=== PATIENT | female | born 1975 | race Caucasian/White ===

== ENCOUNTER 2018-01-15 12:55 | Emergency (ER) | payer BC ==
--- NOTE | 2018-01-15 13:45 | EDM.PDOC ---
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 Past medical history: As per history of present illness and as reviewed below otherwise noncontributory. Surgical history: As per history of present illness and as reviewed below otherwise noncontributory. Social history: No reported history of drug or alcohol abuse. Family history: As per history of present illness and as reviewed below otherwise noncontributory. Physical exam: Alert and oriented female answering questions appropriately in full sentences without any shortness of breath she is nontoxic in appearance skin is warm and dry. Vital signs are reviewed and she is afebrile. HEENT: Atraumatic, normocehpalic, pupils reactive, negative for conjunctival pallor or scleral icterus, mucous membranes moist, throat clear, neck supple, nontender, trachea midline. Lungs: Clear to auscultation, breath sounds equal bilaterally, chest non tender. Heart: S1S2, regular, negative for clicks, rubs, or JVD. Abdomen: Soft, nondistended, nontender. Negative for masses or hepatossplenmegaly. Negative for costovertebral tenderness. Pelvis: Stable nontender. Genitourinary: Deferred. Rectal: Deferred Extremities: Mild edema noted to the subpatellar area on left knee is visit tenderness unable to complete anterior drawer as patient is not able to relax enough, negative for cord. Tenderness is noted with compression of her calf. Neurovascular unremarkable. Neuro: Awake, alert, oriented. Cranial nerves II through XII unremarkable. Cerebellum unremarkable. Motor and sensory unremarkable throughout. Exam nonfocal. Discussed this case with Dr. Vegas who is suggested. Ankle x-ray be obtained as well. No ankle fracture Diagnostics: []X-ray left knee CT left knee/ Therapeutics: [] Impression: [Proximal head fibula fracture Plan: []Knee immobilizer Crutches Hydrocodone/APAP Flexeril Referral to orthopedic clinic Definitive disposition and diagnosis as appropriate pending reevaluation and review of above. 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: Neurological History: Reports: Migraines Psychiatric History: Reports: Anxiety - Past Surgical History Other HEENT Surgeries/Procedures: hx Right and left middle ear surgery Female Surgical History: Reports: Tubal Ligation Social & Family History - Family History Family Medical History: Noncontributory - Tobacco Use Smoking Status *Q: Current Every Day Smoker Years of Tobacco use: 28 Packs/Tins Daily: 0.5 - Caffeine Use Caffeine Use: Reports: Coffee - Recreational Drug Use Recreational Drug Use: No Review of Systems - Review of Systems Review Of Systems: ROS reveals no pertinent complaints other than HPI. ED EXAM, GENERAL - Physical Exam Exam: See Below (see dictation) Course - Vital Signs Last Recorded V/S: Last Vital Signs Temp 37.4 C 01/15/18 13:28 Pulse 87 01/15/18 13:28 Resp 20 01/15/18 13:28 BP 128/85 01/15/18 13:28 Pulse Ox 98 01/15/18 13:28 - Orders/Labs/Meds Orders: Active Orders 24 hr Category Date Time Status Ankle Min 3V Lt [CR] Stat Exams 01/15/18 16:17 Taken Knee 3V Lt [CR] Stat Exams 01/15/18 13:45 Taken Lower Leg w Cont Lt [CT] Stat Exams 01/15/18 14:34 Taken Meds: Medications Discontinued Medications Generic Name Dose Route Start Last Admin Trade Name Freq PRN Reason Stop Dose Admin Diazepam 2.5 mg 01/15/18 14:39 01/15/18 14:51 Valium IV 01/15/18 14:40 2.5 mg ONETIME ONE Administration Iopamidol 100 ml 01/15/18 15:21 01/15/18 15:22 Isovue-370 (76%) IVPUSH 01/15/18 15:22 100 ml ONETIME STA Administration Morphine Sulfate 4 mg 01/15/18 14:38 01/15/18 14:50 Morphine IVPUSH 01/15/18 14:39 4 mg ONETIME ONE Administration Ondansetron HCl 4 mg 01/15/18 14:38 01/15/18 14:50 Zofran IVPUSH 01/15/18 14:39 4 mg ONETIME ONE Administration Departure - Departure Time of Disposition: 16:49 Disposition: Home, Self-Care 01 Condition: Good Clinical Impression: Fracture of fibula - Discharge Information Instructions: Fibular Fracture Rehab-SportsMed, How to Use a Knee Immobilizer, [id number] Referrals: Paul Ulloa MD [Primary Care Provider] - Shavon Nation MD [Physician] - Forms: ED Department Discharge Additional Instructions: The following information is given to patients seen in the emergency department who are being discharged to home. This information is to outline your options for follow-up care. We provide all patients seen in our emergency department with a follow-up referral. The need for follow-up, as well as the timing and circumstances, are variable depending upon the specifics of your emergency department visit. If you don't have a primary care physician on staff, we will provide you with a referral. We always advise you to contact your personal physician following an emergency department visit to inform them of the circumstance of the visit and for follow-up with them and/or the need for any referrals to a consulting specialist. The emergency department will also refer you to a specialist when appropriate. This referral assures that you have the opportunity for followup care with a specialist. All of these measure are taken in an effort to provide you with optimal care, which includes your followup. Under all circumstances we always encourage you to contact your private physician who remains a resource for coordinating your care. When calling for followup care, please make the office aware that this follow-up is from your recent emergency room visit. If for any reason you are refused follow-up, please contact the [facility] emergency department at and asked to speak to the emergency department charge nurse. fracture of the proximal head of the fibula No other fractures are noted Immobilizer will be in place Crutches for no weightbearing Return to the emergency department as directed For her to the orthopedics clinic - My Orders Last 24 Hours: My Active Orders 01/15/18 13:45 Knee 3V Lt [CR] Stat 01/15/18 14:34 Lower Leg w Cont Lt [CT] Stat 01/15/18 16:17 Ankle Min 3V Lt [CR] Stat - Assessment/Plan Last 24 Hours: My Active Orders 01/15/18 13:45 Knee 3V Lt [CR] Stat 01/15/18 14:34 Lower Leg w Cont Lt [CT] Stat 01/15/18 16:17 Ankle Min 3V Lt [CR] Stat
[2018-01-15] MEDS ORDERED: Ondansetron 4 MG/2 ML SDV IVPUSH ONE (14:38)
[2018-01-15] MEDS ORDERED: Morphine 4 MG/ML Syringe IVPUSH ONE (14:38)
[2018-01-15] MEDS ORDERED: Iopamidol 755 Mg/ML 100 ML Bottle IVPUSH STA (15:21)
[2018-01-15 17:38] VITALS: BP 130/70
--- NOTE | 2018-01-16 14:33 | CR ---
EXAM DATE: 01/15/18 PATIENT'S AGE: 42 Patient: HONG VARNER MFOMO Facility: [place], [place] Site . Site : 1975 Study: XRay Knee Left [id number]/28/2018 2:24:34 PM Ordering Physician: Doctor Rosas Final Report: INDICATION: Left knee pain. TECHNIQUE: Three views of the left knee. COMPARISON: None. FINDINGS: No joint effusion, joint space narrowing, chondrocalcinosis or other abnormality. IMPRESSION: Negative left knee. Dictated by Tom De La Vega MD @ Jan 15 2018 2:34PM (Electronic Signature) Report Signed by Proxy. JONO
--- NOTE | 2018-01-16 14:45 | CT ---
EXAM DATE: 01/15/18 PATIENT'S AGE: 42 Patient: HONG VARNER MFOMO Facility: [place], [place] Site . Site : 1975 Study: CT Extremity Left lower leg w cont [id number]/28/2018 3:30:13 PM Ordering Physician: Doctor Rosas Final Report: HISTORY: Severe left calf pain. Fall. Assess for vascular injury. TECHNIQUE: CT left tibia and fibula with IV contrast. COMPARISON: None. FINDINGS: Popliteal, anterior tibial, posterior tibial, and peroneal arteries are patent. No active contrast extravasation. No pseudoaneurysm. Low density fat stranding between the medial gastrocnemius and soleus muscles. No fluid collection. No significant popliteal cyst. No muscle atrophy. Nondisplaced acute fracture of the head of the left fibula. Fracture involves the proximal tibiofibular joint. Trace right knee joint effusion. Knee joint spaces appear maintained. Ankle joint is maintained. Joint spaces of the visualized hindfoot and midfoot are maintained. No lytic or blastic bone lesions. IMPRESSION: 1. No evidence of vascular injury. 2. Acute nondisplaced fracture of the head of the fibula. 3. Fat stranding between the medial gastrocnemius and soleus muscles may be due to musculotendinous injury. This could be better evaluated with MRI if warranted. Please note that all CT scans at this facility use dose modulation, iterative reconstruction, and/or weight-based dosing when appropriate to reduce radiation dose to as low as reasonably achievable. Dictated by Lyndon Yates MD @ Jan 16 2018 7:56AM (Electronic Signature) Report Signed by Proxy. MTDD
--- NOTE | 2018-01-16 15:07 | CR ---
EXAM DATE: 01/15/18 PATIENT'S AGE: 42 Patient: HONG VARNER MFOMO Facility: [place], [place] Site . Site : 1975 Study: XRay Extremity Left ankle [id number]/28/2018 4:31:48 PM Ordering Physician: Doctor Rosas Final Report: INDICATION: Patient fell. Ankle injury. COMPARISON: none TECHNIQUE: Three-view left ankle FINDINGS: The bones are anatomically aligned. There is no evidence of fracture, erosion or intrinsic bone lesion. The soft tissues appear normal. IMPRESSION: Negative left ankle. Dictated by Brant Tyler MD @ Jan 15 2018 4:39PM (Electronic Signature) Report Signed by Proxy. JONO
== END 2018-01-15 17:34 | disposition home or self-care (01) ==
LOC: MW.ED 12:55
DX: S82.832A Other fracture of upper and lower end of left fibula, initial encounter for closed fracture (principal); F17.210 Nicotine dependence, cigarettes, uncomplicated; Z79.899 Other long term (current) drug therapy; X50.9XXA Other and unspecified overexertion or strenuous movements or postures, initial encounter
CPT/HCPCS: 73562; 73610; 73701; 96374; 96375; 99283; A9270; J2270; J2405; Q9967

== ENCOUNTER 2018-02-02 23:38 | Emergency (ER) | payer BC ==
--- NOTE | 2018-02-02 23:54 | EDM.PDOC ---
ED HPI GENERAL MEDICAL PROBLEM - General Chief Complaint: Lower Extremity Injury/Pain Stated Complaint: BRUISES ON FACE, PAIN IN CALVES Time Seen by Provider: 02/02/18 23:54 Source of Information: Reports: Patient - History of Present Illness INITIAL COMMENTS - FREE TEXT/NARRATIVE: HISTORY AND PHYSICAL: History of present illness: [Patient presents with left lower extremity discomfort and bruising, she has known for moral head fracture she has not been wearing her brace she is on rummage sailing today bruising insulate consistent with old bruises but she does have some pain redness warmth or edema faint bruising going up the back of her calf consistent with the fracture history She complains of bruising on her face as well however unable to wipe this off as it appears her mascara has ran down her face that she was out in the heat today rummage sailing and sweating. No fever nausea vomiting chills sweats] Review of systems: As per history of present illness and below otherwise all systems reviewed and negative. Past medical history: As per history of present illness and as reviewed below otherwise noncontributory. Surgical history: As per history of present illness and as reviewed below otherwise noncontributory. Social history: No reported history of drug or alcohol abuse. Family history: As per history of present illness and as reviewed below otherwise noncontributory. Physical exam: HEENT: Atraumatic, normocephalic, pupils reactive, negative for conjunctival pallor or scleral icterus, mucous membranes moist, throat clear, neck supple, nontender, trachea midline. Lungs: Clear to auscultation, breath sounds equal bilaterally, chest nontender. Heart: S1S2, regular, negative for clicks, rubs, or JVD. Abdomen: Soft, nondistended, nontender. Negative for masses or hepatosplenomegaly. Negative for costovertebral tenderness. Pelvis: Stable nontender. Genitourinary: Deferred. Rectal: Deferred. Extremities: Atraumatic, negative for cords or calf pain. Neurovascular unremarkable. Neuro: Awake, alert, oriented. Cranial nerves II through XII unremarkable. Cerebellum unremarkable. Motor and sensory unremarkable throughout. Exam nonfocal. Diagnostics: [A shunt was offered ultrasound to rule out DVT she refused Recommend wearing brace and using crutches nonweightbearing] Therapeutics: [] Impression: [Fibular head fracture January 15, 2018 Knee immobilizer already provided] Definitive disposition and diagnosis as appropriate pending reevaluation and review of above. 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: Neurological History: Reports: Migraines Psychiatric History: Reports: Anxiety - Past Surgical History Other HEENT Surgeries/Procedures: hx Right and left middle ear surgery Female Surgical History: Reports: Tubal Ligation Social & Family History - Family History Family Medical History: Noncontributory - Tobacco Use Smoking Status *Q: Current Every Day Smoker Years of Tobacco use: 20 Packs/Tins Daily: 0.5 - Caffeine Use Caffeine Use: Reports: Coffee Review of Systems - Review of Systems Review Of Systems: See Below ED EXAM, GENERAL - Physical Exam Exam: See Below Course - Vital Signs Last Recorded V/S: Last Vital Signs Temp 97.1 F 02/02/18 23:55 Pulse 114 H 02/02/18 23:55 Resp 18 02/02/18 23:55 BP 137/81 02/02/18 23:55 Pulse Ox 100 02/02/18 23:55 Departure - Departure Time of Disposition: 00:10 Disposition: Home, Self-Care 01 Condition: Good Clinical Impression: Fibula fracture - Discharge Information Referrals: Paul Ulloa MD [Primary Care Provider] - Forms: ED Department Discharge Additional Instructions: The following information is given to patients seen in the emergency department who are being discharged to home. This information is to outline your options for follow-up care. We provide all patients seen in our emergency department with a follow-up referral. The need for follow-up, as well as the timing and circumstances, are variable depending upon the specifics of your emergency department visit. If you don't have a primary care physician on staff, we will provide you with a referral. We always advise you to contact your personal physician following an emergency department visit to inform them of the circumstance of the visit and for follow-up with them and/or the need for any referrals to a consulting specialist. The emergency department will also refer you to a specialist when appropriate. This referral assures that you have the opportunity for follow-up care with a specialist. All of these measure are taken in an effort to provide you with optimal care, which includes your follow-up. Under all circumstances we always encourage you to contact your private physician who remains a resource for coordinating your care. When calling for follow-up care, please make the office aware that this follow-up is from your recent emergency room visit. If for any reason you are refused follow-up, please contact the [facility] emergency department at and asked to speak to the emergency department charge nurse.
[2018-02-02 23:56] VITALS: BP 137/81
== END 2018-02-03 00:15 | disposition home or self-care (01) ==
LOC: MW.ED 23:38
DX: S82.402D Unspecified fracture of shaft of left fibula, subsequent encounter for closed fracture with routine healing (principal); F17.210 Nicotine dependence, cigarettes, uncomplicated; Z79.899 Other long term (current) drug therapy; X58.XXXD Exposure to other specified factors, subsequent encounter
CPT/HCPCS: 99283

== ENCOUNTER 2020-04-20 06:32 | Day surgery (SDC) | payer BC ==
[~2020-04-20 06:32] MED LIST: Lactated Ringers 1,000 ML IV SCH; Sodium Chloride 0.9% 10 ML SDV IV PRN; Sodium Chloride 0.9% 10 ML Syringe FLUSH PRN; Sodium Chloride 0.9% 2.5 ML Syringe FLUSH PRN; ceFAZolin 1 GM Vial IM ONE
[2020-04-20] MEDS ORDERED: Ondansetron 4 MG/2 ML SDV ONE (07:13)
[2020-04-20] MEDS ORDERED: Lidocaine 2% 5 ML SDV ONE (07:13)
[2020-04-20] MEDS ORDERED: Propofol 200 MG/20 ML SDV ONE (07:13)
[2020-04-20] MEDS ORDERED: Midazolam 1 MG/ML 2 ML SDV ONE (07:14)
[2020-04-20] MEDS ORDERED: fentaNYL 250 MCG/5 ML SDV ONE (07:14)
--- NOTE | 2020-04-20 07:48 | PCM.PREANE ---
Preanesthetic Assessment - Anesthesia/Transfusion/Family Hx Anesthesia History: Prior Anesthesia Without Reaction Family History of Anesthesia Reaction: No Transfusion History: No Prior Transfusion(s) - Review of Systems General: No Symptoms Pulmonary: No Symptoms Cardiovascular: No Symptoms Gastrointestinal: No Symptoms Neurological: No Symptoms Other: Reports: None - Physical Assessment NPO Status Date: 04/19/20 Vital Signs: Last Vital Signs Temp 97.3 F 04/20/20 06:53 Pulse 73 04/20/20 06:53 Resp 16 04/20/20 06:53 BP 123/72 04/20/20 06:53 Pulse Ox 98 04/20/20 06:53 Height: 5 ft 6 in Weight: 68.492 kg ASA Class: 2 Mental Status: Alert & Oriented x3 Airway Class: Mallampati = 1 Dentition: Reports: Normal Dentition ROM/Head Extension: Full Lungs: Clear to Auscultation, Normal Respiratory Effort Cardiovascular: Regular Rate, Regular Rhythm - Lab Values: Laboratory Last Values WBC 4.42 K/uL (4.0-11.0) 04/17/20 08:33 RBC 4.30 M/uL (4.30-5.90) 04/17/20 08:33 Hgb 11.1 g/dL (12.0-16.0) L 04/17/20 08:33 Hct 36.9 % (36.0-46.0) 04/17/20 08:33 MCV 85.8 fL (80.0-98.0) 04/17/20 08:33 MCH 25.8 pg (27.0-32.0) L 04/17/20 08:33 MCHC 30.1 g/dL (31.0-37.0) L 04/17/20 08:33 RDW Std Deviation 52.8 fl (28.0-62.0) 04/17/20 08:33 RDW Coeff of Crys 17 % (11.0-15.0) H 04/17/20 08:33 Plt Count 305 K/uL (150-400) 04/17/20 08:33 MPV 9.40 fL (7.40-12.00) 04/17/20 08:33 Nucleated RBC % 0.0 /100WBC 04/17/20 08:33 Nucleated RBCs # 0 K/uL 08/28/20 08:33 HCG, Qual NEGATIVE (NEG) 04/17/20 08:33 - Allergies Allergies/Adverse Reactions: Allergies Allergy/AdvReac Type Severity Reaction Status Date / Time No Known Allergies Allergy Verified 04/14/20 12:46 - Blood Blood Available: No - Anesthesia Plan Pre-Op Medication Ordered: None - Acknowledgements Anesthesia Type Planned: General Anesthesia Pt an Appropriate Candidate for the Planned Anesthesia: Yes Alternatives and Risks of Anesthesia Discussed w Pt/Guardian: Yes Pt/Guardian Understands and Agrees with Anesthesia Plan: Yes PreAnesthesia Questionnaire HEENT History: Reports: Other (See Below) Other HEENT History: hx of Otosclerosis, wears glasses Cardiovascular History: Reports: Other (See Below) Other Cardiovascular History: hx of mild HTN Gastrointestinal History: Reports: Hemorrhoids, Other (See Below) Other Gastrointestinal History: heartburn in the past Genitourinary History: Reports: Renal Calculus 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: Musculoskeletal History: Reports: Fracture Other Musculoskeletal History: hx of fx clavicle, right wrist, fibula and vertebrate L3 and S4-5 Neurological History: Reports: Concussion, Migraines Psychiatric History: Reports: Anxiety Hematologic History: Reports: Iron Deficiency - Past Surgical History Head Surgeries/Procedures: Reports: None HEENT Surgical History: Reports: Other (See Below) Other HEENT Surgeries/Procedures: replacement of "rods" in both ears- has titanium parts Female Surgical History: Reports: Tubal Ligation, Other (See Below) Other Female Surgeries/Procedures: had BTL and reversal, "clamps" put on tubes and then bilateral Salpingectomy - SUBSTANCE USE Smoking Status *Q: Current Every Day Smoker Tobacco Use Within Last Twelve Months: Cigarettes Days Per Week of Alcohol Use: 1 Recreational Drug Use History: No - HOME MEDS Home Medications: Home Meds Topiramate [Topamax] 125 mg PO BEDTIME 06/22/15 [History] ALPRAZolam [Xanax] 1 mg PO ASDIRECTED PRN 04/14/20 [History] - CURRENT (IN HOUSE) MEDS Current Meds: Current Medications Lactated Ringer's (Ringers, Lactated) 1,000 mls @ 100 mls/hr IV ASDIRECTED LARRY Last Admin: 04/20/20 06:55 Dose: 100 mls/hr Documented by: Sodium Chloride (Saline Flush) 10 ml FLUSH ASDIRECTED PRN PRN Reason: Keep Vein Open Sodium Chloride (Saline Flush) 2.5 ml FLUSH ASDIRECTED PRN PRN Reason: Keep Vein Open Sodium Chloride (Normal Saline) 10 ml IV ASDIRECTED PRN PRN Reason: IV Use Discontinued Medications Cefazolin Sodium (Ancef) 1 gm IM ONETIME ONE Stop: 04/20/20 05:01 Fentanyl (Sublimaze) Confirm Administered Dose 250 mcg .ROUTE .STK-MED ONE Stop: 04/20/20 07:15 Lidocaine (Xylocaine-Mpf 2%) Confirm Administered Dose 5 ml .ROUTE .STK-MED ONE Stop: 04/20/20 07:14 Midazolam HCl (Versed 1 Mg/Ml) Confirm Administered Dose 2 mg .ROUTE .STK-MED ONE Stop: 04/20/20 07:15 Ondansetron HCl (Zofran) Confirm Administered Dose 4 mg .ROUTE .STK-MED ONE Stop: 04/20/20 07:14 Propofol (Diprivan 20 Ml) Confirm Administered Dose 200 mg .ROUTE .STK-MED ONE Stop: 04/20/20 07:14
[2020-04-20] MEDS ORDERED: Sodium Chloride 0.9% 20 ML ONE (08:13)
[2020-04-20] MEDS ORDERED: ceFAZolin 1 GM Vial ONE (08:13)
--- NOTE | 2020-04-20 08:37 | PCM.OPNOTE ---
- General Post-Op/Procedure Note Date of Surgery/Procedure: 04/20/20 Operative Procedure(s): Operative hysteroscopy with polypectomy. Thermal endometrial ablation Findings: Endocervical polyp, otherwise normal appearing uterine cavity Pre Op Diagnosis: Menometrorrhagia Post-Op Diagnosis: Same Anesthesia Technique: General LMA Primary Surgeon: Myriam Castillo Pathology: polyp with endometrial curretings Fluid Replacement, Intraop: 700 (Fluid deficit 120 mL NS) EBL in mLs: 5 Complications: none known Condition: Good Free Text/Narrative:: Dictation [id number]
[2020-04-20] MEDS ORDERED: Atropine 0.1 MG/ML 10 ML Syringe IVPUSH PRN ×2 (08:48)
[2020-04-20] MEDS ORDERED: Naloxone 0.4 MG/ML Syringe IVPUSH PRN (08:48)
[2020-04-20] MEDS ORDERED: 50% Dextrose in Water 50 ML Syringe IVPUSH PRN (08:48)
[2020-04-20] MEDS ORDERED: Ketorolac 30 MG/ML SDV IVPUSH ONE (08:48)
[2020-04-20] MEDS ORDERED: Albuterol 0.083% 2.5 MG/3 ML Neb Soln NEB PRN (08:48)
[2020-04-20] MEDS ORDERED: EPINEPHrine 1:10,000 1 MG/10 ML Syringe IVPUSH PRN (08:48)
[2020-04-20] MEDS ORDERED: fentaNYL 100 MCG/2 ML SDV ONE (08:50)
[2020-04-20] MEDS ORDERED: Ketorolac 30 MG/ML SDV ONE (08:51)
[2020-04-20] MEDS: fentaNYL 100 MCG/2 ML SDV IVPUSH PRN ×2 (08:52→08:57)
[2020-04-20] MEDS ORDERED: HYDROmorphone 1 MG/ML Syringe IVPUSH ONE (09:21)
[2020-04-20] MEDS ORDERED: Acetaminophen 1,000 MG in Premix Bag 1 BAG IV ONE (09:21)
[2020-04-20] MEDS ORDERED: HYDROmorphone 2 MG/ML Syringe ONE (09:26)
--- NOTE | 2020-04-20 10:36 | PCM.POSTAN ---
POST ANESTHESIA ASSESSMENT - MENTAL STATUS Mental Status: Alert, Oriented - VITAL SIGNS Vital Signs: Last Vital Signs Temp 97.2 F 04/20/20 08:27 Pulse 57 L 04/20/20 09:02 Resp 10 L 04/20/20 09:02 BP 122/74 04/20/20 09:02 Pulse Ox 97 04/20/20 09:02 - RESPIRATORY Respiratory Status: Respiratory Rate WNL, Airway Patent, O2 Saturation Stable - CARDIOVASCULAR CV Status: Pulse Rate WNL, Blood Pressure Stable - GASTROINTESTINAL GI Status: No Symptoms - POST OP HYDRATION Hydration Status: Adequate & Stable
--- NOTE | 2020-04-20 10:37 | PCM48HPAN ---
Post Anesthesia Note - EVALUATION WITHIN 48HRS OF ANESTHETIC Vital Signs in Normal Range: Yes Patient Participated in Evaluation: Yes Respiratory Function Stable: Yes Airway Patent: Yes Cardiovascular Function Stable: Yes Hydration Status Stable: Yes Pain Control Satisfactory: Yes Nausea and Vomiting Control Satisfactory: Yes Mental Status Recovered: Yes Vital Signs: Last Vital Signs Temp 97.2 F 04/20/20 08:27 Pulse 57 L 04/20/20 09:02 Resp 10 L 04/20/20 09:02 BP 122/74 04/20/20 09:02 Pulse Ox 97 04/20/20 09:02
[2020-04-20 12:09] VITALS: BP 118/72; PULSE 72
--- NOTE | 2020-04-20 12:50 | OR ---
SURGEON: Myriam Castillo M.D. DATE OF PROCEDURE: 04/20/2020 PREOPERATIVE DIAGNOSIS: Menometrorrhagia. POSTOPERATIVE DIAGNOSIS: Menometrorrhagia. PROCEDURES: Operative hysteroscopy with polypectomy, thermal endometrial ablation. PRIMARY SURGEON: Myriam Castillo MD ANESTHESIA: General LMA. ESTIMATED BLOOD LOSS: 5 mL. FLUIDS: 700 mL of crystalloid. FLUID DEFICIT: 120 mL of normal saline. FINDINGS: Endocervical polyp, otherwise normal-appearing uterine cavity. DISPOSITION: The patient to PACU, stable; specimen to pathology. PROCEDURE DETAILS: Quynh is a 45-year-old female who has ongoing difficulties with menometrorrhagia. Endometrial biopsy is benign at this time, and she has permanent control. At this time, she would like to proceed with surgical intervention in the form of thermal endometrial ablation. Risks of procedure have been discussed. Proper consent obtained. The patient was taken to the operating room where she underwent general LMA, was placed in modified dorsal lithotomy position, was prepped and draped in usual sterile fashion. SCDs to lower extremity. Bladder was drained. Time-out was performed. She also received Ancef prophylactically given recent suspected pelvic infection. Speculum was introduced in the vagina. Posterior lip of the cervix was grasped with an Allis clamp. Using MyoSure hysteroscope, was able to gently introduce this into the endometrial cavity using normal saline as distention media. Endometrial cavity had normal appearance. Left ostia and right ostia able to be visualized. No polyps were seen along the fundus or mid fundus. However, upon exiting, there was an endocervical polyp noted. Using MyoSure resection device, was able to resect this nicely. Specimen will be sent to pathology. Caitlin device was now prepped according to magnesium mill operator protocol. The antral os was sounded to 4 cm. The Caitlin device was now introduced into the uterine cavity. Balloon insufflated. Arms opened. Integrity test was performed and passed. Therefore, a 120-second ablative process now took place. At the completion of this, the balloon was released, arms were closed, and the device was removed from the uterine cavity. Hemostasis appeared evident. Sponge and instrument count was correct x2. The patient tolerated the procedure well. All instruments were removed from the vagina. The patient will go to PACU in stable condition, specimen to pathology. DAVIDBSAR / MODL /[id number]
== END 2020-04-20 11:15 | disposition home or self-care (01) ==
LOC: MW.SDS 06:32
PROVIDERS: ATTEND Obstetrics & Gynecology
DX: N84.1 Polyp of cervix uteri (principal); N76.0 Acute vaginitis; I10 Essential (primary) hypertension; F41.9 Anxiety disorder, unspecified; F17.210 Nicotine dependence, cigarettes, uncomplicated; Z79.899 Other long term (current) drug therapy
CPT/HCPCS: 36415; 58563; 84703; 85027; 86850; 86900; 86901; J0131; J0690; J1885; J2001; J2250; J2405; J2704; J3010; J7120; 00952

== ENCOUNTER 2021-07-06 06:27 | Day surgery (SDC) | payer BC ==
[~2021-07-06 06:27] MED LIST changes: -Lactated Ringers 1,000 ML IV SCH; -Sodium Chloride 0.9% 10 ML SDV IV PRN; +Sodium Chloride 0.9% 20 ML SDV IV PRN; -ceFAZolin 1 GM Vial IM ONE; +ceFAZolin 1 GM in Premix Bag 1 BAG IV ONE
[2021-07-06] MEDS: Lactated Ringers 1,000 ML IV SCH ×2 (07:01→11:35)
[2021-07-06] MEDS ORDERED: Scopolamine 1.5 MG Transdermal Patch ONE (07:16)
[2021-07-06] MEDS ORDERED: Dexmedetomidine 200 MCG/2 ML SDV ONE (07:27)
[2021-07-06] MEDS ORDERED: Lidocaine 2% 100 MG/5 ML Syringe ONE (07:27)
[2021-07-06] MEDS ORDERED: Propofol 200 MG/20 ML SDV ONE (07:27)
[2021-07-06] MEDS ORDERED: Rocuronium Bromide 50 MG/5 ML Syringe ONE (07:27)
[2021-07-06] MEDS ORDERED: Naloxone 0.4 MG/ML SDV IVPUSH PRN (07:29)
[2021-07-06] MEDS ORDERED: Morphine 2 MG/ML SYRINGE IVPUSH PRN (07:29)
[2021-07-06] MEDS ORDERED: Ondansetron 4 MG/2 ML SDV IVPUSH PRN ×2 (07:29→09:10)
[2021-07-06] MEDS ORDERED: Albuterol 0.083% 2.5 MG/3 ML Neb Soln NEB PRN (07:29)
[2021-07-06] MEDS ORDERED: Metoclopramide 10 MG/2 ML SDV IVPUSH PRN (07:29)
[2021-07-06] MEDS ORDERED: Sodium Chloride 0.9% 20 ML ONE (07:30)
--- NOTE | 2021-07-06 07:31 | PCM.PREANE ---
Preanesthetic Assessment - Anesthesia/Transfusion/Family Hx Anesthesia History: Prior Anesthesia Without Reaction Transfusion History: No Prior Transfusion(s) - Review of Systems General: No Symptoms Pulmonary: No Symptoms Cardiovascular: No Symptoms Gastrointestinal: No Symptoms Neurological: No Symptoms Other: Reports: None - Physical Assessment NPO Status Date: 07/06/21 NPO Status Time: 00:00 Vital Signs: Last Vital Signs Temp 97.0 F 07/06/21 06:36 Pulse 78 07/06/21 06:36 Resp 16 07/06/21 06:36 BP 126/85 07/06/21 06:36 Pulse Ox 98 07/06/21 06:36 Height: 5 ft 6 in Weight: 166 lb ASA Class: 1 Mental Status: Alert & Oriented x3 Airway Class: Mallampati = 1 Dentition: Reports: Normal Dentition Thyro-Mental Finger Breadths: 3 Mouth Opening Finger Breadths: 3 ROM/Head Extension: Full Lungs: Clear to Auscultation, Normal Respiratory Effort Cardiovascular: Regular Rate, Regular Rhythm - Lab Values: Laboratory Last Values Blood Type B POSITIVE 07/05/21 14:18 Antibody Screen NEGATIVE 07/05/21 14:18 - Allergies Allergies/Adverse Reactions: Allergies Allergy/AdvReac Type Severity Reaction Status Date / Time No Known Allergies Allergy Verified 07/01/21 09:44 - Anesthesia Plan Pre-Op Medication Ordered: Other (Scopolamine) - Acknowledgements Anesthesia Type Planned: General Anesthesia Pt an Appropriate Candidate for the Planned Anesthesia: Yes Alternatives and Risks of Anesthesia Discussed w Pt/Guardian: Yes Pt/Guardian Understands and Agrees with Anesthesia Plan: Yes PreAnesthesia Questionnaire HEENT History: Reports: Other (See Below) Other HEENT History: hx of Otosclerosis, wears glasses Cardiovascular History: Reports: Other (See Below) Other Cardiovascular History: hx of mild HTN Respiratory History: Reports: None Gastrointestinal History: Reports: Hemorrhoids, Other (See Below) Other Gastrointestinal History: heartburn in the past Genitourinary History: Reports: Renal Calculus Other Genitourinary History: hx of passing a kidney stone DRY WALL NAILER History: Reports: Musculoskeletal History: Reports: Fracture Other Musculoskeletal History: hx of fx clavicle, right wrist, fibula and vertebrate L3 and S4-5 Neurological History: Reports: Concussion, Migraines Other Neuro History: takes medication for migraines daily Psychiatric History: Reports: Anxiety Other Psychiatric History: some claustrophobia Endocrine/Metabolic History: Reports: None Hematologic History: Reports: Iron Deficiency Immunologic History: Reports: None Oncologic (Cancer) History: Reports: None Dermatologic History: Reports: None - Past Surgical History Head Surgeries/Procedures: Reports: None HEENT Surgical History: Reports: Other (See Below) Other HEENT Surgeries/Procedures: replacement of "rods" in both ears- has titanium parts Cardiovascular Surgical History: Reports: None Respiratory Surgical History: Reports: None GI Surgical History: Reports: Colonoscopy Female Surgical History: Reports: Tubal Ligation, Other (See Below) Other Female Surgeries/Procedures: had BTL and reversal, "clamps" put on tubes and then bilateral Salpingectomy Endocrine Surgical History: Reports: None Neurological Surgical History: Reports: None Musculoskeletal Surgical History: Reports: None Oncologic Surgical History: Reports: None Dermatological Surgical History: Reports: None - SUBSTANCE USE Tobacco Use Status *Q: Current Every Day Tobacco User Tobacco Use Within Last Twelve Months: Cigarettes Recreational Drug Use History: No - HOME MEDS Home Medications: Home Meds Topiramate [Topamax] 125 mg PO BEDTIME 06/22/15 [History] - CURRENT (IN HOUSE) MEDS Current Meds: Current Medications Lactated Ringer's (Ringers, Lactated) 1,000 mls @ 100 mls/hr IV ASDIRECTED LARRY Last Admin: 07/06/21 07:01 Dose: 100 mls/hr Documented by: Sodium Chloride (Sodium Chloride 0.9% 10 Ml Syringe) 10 ml FLUSH ASDIRECTED PRN PRN Reason: Keep Vein Open Sodium Chloride (Sodium Chloride 0.9% 2.5 Ml Syringe) 2.5 ml FLUSH ASDIRECTED PRN PRN Reason: Keep Vein Open Sodium Chloride (Sodium Chloride 0.9% 20 Ml Sdv) 10 ml IV ASDIRECTED PRN PRN Reason: IV Use Discontinued Medications Cefazolin Sodium/Dextrose 1 gm (/ Premix) 50 mls @ 100 mls/hr IV ONETIME ONE Stop: 07/06/21 05:29 Scopolamine (Scopolamine 1.5 Mg Transdermal Patch) Confirm Administered Dose 1.5 mg .ROUTE .STK-MED ONE Stop: 07/06/21 07:17
[2021-07-06] MEDS ORDERED: Midazolam 1 MG/ML 2 ML SDV ONE (07:32)
[2021-07-06] MEDS ORDERED: Bupivacaine 0.25% 10 ML SDV ONE (07:49)
[2021-07-06] MEDS ORDERED: Fluorescein 5 ML Vial ONE (07:49)
[2021-07-06] MEDS ORDERED: Dexamethasone 4 MG/ML 5 ML MDV ONE (08:09)
[2021-07-06] MEDS ORDERED: Sugammadex Sodium 200 MG/2 ML VIAL ONE (08:27)
[2021-07-06] MEDS ORDERED: Ketorolac 30 MG/ML SDV ONE (08:27)
[2021-07-06] MEDS ORDERED: Ondansetron 4 MG/2 ML SDV ONE (08:27)
[2021-07-06] MEDS ORDERED: Furosemide 40 MG/4 ML VIAL ONE (08:55)
[2021-07-06] MEDS ORDERED: Morphine 4 MG/ML VIAL IVPUSH PRN (09:10)
[2021-07-06] MEDS ORDERED: Promethazine 25 MG/ML SDV IM PRN (09:10)
[2021-07-06] MEDS ORDERED: Ketorolac 30 MG/ML SDV IVPUSH ONE (09:10)
[2021-07-06] MEDS ORDERED: Acetaminophen/oxyCODONE 325-5 MG Tab PO PRN (09:10)
[2021-07-06] MEDS: fentaNYL 100 MCG/2 ML SDV IVPUSH PRN ×2 (09:18→09:26)
--- NOTE | 2021-07-06 09:21 | PCM.OPNOTE ---
- General Post-Op/Procedure Note Date of Surgery/Procedure: 07/06/21 Operative Procedure(s): TVH, cystoscopy Findings: Boggy mildly enlarged uterus, normal appearing ovaries Pre Op Diagnosis: Menometrorrhagia Post-Op Diagnosis: Same Anesthesia Technique: General ET Tube Primary Surgeon: Myriam Castillo Pathology: uterus Fluid Replacement, Intraop: 1,300 EBL in mLs: 200 Complications: none known Condition: Good Free Text/Narrative:: Intake & Output 07/05/21 07/06/21 07/06/21 22:59 06:59 14:59 Output Total 100 Balance -100 Dictation [id number]
--- NOTE | 2021-07-06 09:29 | PCM48HPAN ---
Post Anesthesia Note - EVALUATION WITHIN 48HRS OF ANESTHETIC Vital Signs in Normal Range: Yes Patient Participated in Evaluation: Yes Respiratory Function Stable: Yes Airway Patent: Yes Cardiovascular Function Stable: Yes Hydration Status Stable: Yes Pain Control Satisfactory: Yes Nausea and Vomiting Control Satisfactory: Yes Mental Status Recovered: Yes Vital Signs: Last Vital Signs Temp 97.0 F 07/06/21 06:36 Pulse 78 07/06/21 06:36 Resp 16 07/06/21 06:36 BP 126/85 07/06/21 06:36 Pulse Ox 98 07/06/21 06:36
--- NOTE | 2021-07-06 09:29 | PCM.POSTAN ---
POST ANESTHESIA ASSESSMENT - MENTAL STATUS Mental Status: Alert, Oriented - VITAL SIGNS Vital Signs: Last Vital Signs Temp 97.0 F 07/06/21 06:36 Pulse 78 07/06/21 06:36 Resp 16 07/06/21 06:36 BP 126/85 07/06/21 06:36 Pulse Ox 98 07/06/21 06:36 - RESPIRATORY Respiratory Status: Respiratory Rate WNL, Airway Patent, O2 Saturation Stable - CARDIOVASCULAR CV Status: Pulse Rate WNL, Blood Pressure Stable - GASTROINTESTINAL GI Status: No Symptoms - POST OP HYDRATION Hydration Status: Adequate & Stable
[2021-07-06] MEDS: HYDROmorphone 1 MG/ML Syringe IVPUSH PRN ×2 (09:30→09:42)
--- NOTE | 2021-07-06 13:34 | OR ---
SURGEON: Myriam Castillo M.D. DATE OF PROCEDURE: 07/06/2021 PREOPERATIVE DIAGNOSIS: Menometrorrhagia. POSTOPERATIVE DIAGNOSIS: Menometrorrhagia. PROCEDURE: Total vaginal hysterectomy with cystoscopy. PRIMARY SURGEON: Myriam Castillo M.D. CREDIT RISK OFFICER: MD Sky ANESTHESIA: General endotracheal anesthesia. FLUIDS: 1300 mL of crystalloid. ESTIMATED BLOOD LOSS: 200 mL. COMPLICATIONS: None known. FINDINGS: Slightly boggy uterus. Normal-appearing ovaries. Bilateral patent ureters. DISPOSITION: The patient to PACU in stable condition. SPECIMENS: To Pathology. PROCEDURE DETAILS: Quynh is a 46-year-old, G5, P5, who has ongoing difficulties with abnormal uterine bleeding. She did have an endometrial ablation, that she continues to have persistent very long menses despite this intervention. At this time, she would like to proceed with definitive surgical intervention. Risks of the procedure have been discussed and proper consent was obtained. The patient was taken to the operating room where she underwent general endotracheal anesthesia, was placed in modified dorsal lithotomy position, was prepped and draped in the usual sterile fashion. SCDs to the lower extremities. Ty to gravity. Time-out was performed. Received Ancef prophylactically. Weighted speculum was introduced in the vagina. Anterior and sidewall Marciano were placed. Cervix was grasped with Kendrick clamp, circumscribed with Bovie cautery, anteriorly and posteriorly. The overlying mucosa was dissected away from underlying peritoneum. Posterior peritoneum was tented downward and entered sharply anterior. Longer weighted speculum replaced with the shorter. Anteriorly, the peritoneum was tented upward and entered sharply with Metzenbaum scissors. Palmer was used to retract the bladder away from the operative field. Dominguez clamp was used to secure the uterosacral ligaments on either side. These pedicles were transected and suture ligated. Remainder of the suture will be 2- 0 Vicryl unless otherwise specified. Further pedicle on each side was able to be secured involving the cardinal ligament, transected and suture ligated. Further pedicle on either side was then able to be secured moving along the broad ligament, to the upper edge of the medial leaf of the broad ligament through the round ligament in another pedicle securing the utero tubo-ovarian pedicle. These were all suture ligated. The uterus was now exteriorized. It was now removed. At this point, handed off to auto electrical technician to be sent to Pathology. The pedicles were closely inspected. Areas of oozing along the right utero tubo- ovarian pedicle were able to be gently cauterized. Hemostasis appeared evident. The ovary appeared normal along the left side. There was some oozing. This was secured with a 2-0 Vicryl suture. Hemostasis was thereafter evident. This ovary appeared normal. The uterosacral ligament on either side was plicated to the vaginal apex. The pedicle was otherwise inspected and found to be hemostatic. Moist packing lap was placed in order to help further inspect the pedicles. Upon inspection of these, it was found to be hemostatic. Packing lap was now removed. Longer weighted speculum was removed. Billings speculum was now placed and the cuff was closed using 0 Vicryl in continuous running locked fashion. All sutures trimmed. The cuff line inspected and found to be hemostatic. The patient did receive IV fluorescein and Lasix. The Ty catheter balloon was desufflated and Ty catheter was removed. Cystoscope was introduced using normal saline as distention media, was able to visualize the dome of bladder, followed by the trigone, the left ureteral orifice followed by the right ureteral orifice, had fluorescein dyed urine streaming from them helping to ensure ureteral patency. The bladder was now drained. Ty catheter was replaced. The vaginal cuff once again inspected, found to be hemostatic. Sponge, instrument, and needle count was correct x2. The patient tolerated the procedure well overall. She will go to PACU in stable condition. Specimen to Pathology. SALLIE / VAL /[id number]
[2021-07-06] MEDS: Ketorolac 30 MG/ML SDV IVPUSH PRN ×2 (14:40→21:05)
[2021-07-06] MEDS: Acetaminophen/oxyCODONE 325-5 MG Tab PO PRN ×2 (17:32→22:18)
[2021-07-07] MEDS: Acetaminophen/oxyCODONE 325-5 MG Tab PO PRN ×2 (05:06→11:47)
[2021-07-07 07:57] VITALS: BP 108/60; PULSE 62
[2021-07-07 07:57] LABS: BLOOD UREA NITROGEN,BUN 10 mg/dL (7.0-18.0); CARBON DIOXIDE,CO2 25.8 mmol/L (21.0-32.0); CHLORIDE,CL 105 mmol/L (98-107); GLUCOSE RANDOM 103 mg/dL (74-106); POTASSIUM,K 4.2 mmol/L (3.5-5.1); SODIUM,NA 137 mmol/L (136-145)
--- NOTE | 2021-07-07 10:45 | PCM.SURGPN ---
- General Info Date of Service: 07/07/21 POD#: 1 Functional Status: Reports: Pain Controlled, Tolerating Diet, Ambulating, Urinating - Review of Systems General: Reports: Fatigue. Denies: Fever, Weakness Pulmonary: Denies: Shortness of Breath Cardiovascular: Denies: Chest Pain, Palpitations, Lightheadedness Gastrointestinal: Denies: Abdominal Pain, Nausea, Vomiting Genitourinary: Denies: Flank Pain Musculoskeletal: Reports: No Symptoms Skin: Reports: No Symptoms Neurological: Reports: No Symptoms Psychiatric: Reports: No Symptoms - Patient Data Vitals - Most Recent: Last Vital Signs Temp 36.4 C 07/07/21 07:56 Pulse 62 07/07/21 07:56 Resp 18 07/07/21 07:56 BP 108/60 07/07/21 07:56 Pulse Ox 94 L 07/07/21 07:56 Weight - Most Recent: 75.296 kg I&O - Last 24 Hours: Intake & Output 07/06/21 07/07/21 07/07/21 22:59 06:59 14:59 Intake Total 900 Output Total 1325 Balance -425 Lab Results Last 24 Hrs: Laboratory Results - last 24 hr 07/07/21 07/07/21 Range/Units 07:20 07:20 WBC 8.51 (4.0-11.0) K/uL RBC 3.75 L (4.30-5.90) M/uL Hgb 11.3 L (12.0-16.0) g/dL Hct 33.3 L (36.0-46.0) % MCV 88.8 (80.0-98.0) fL MCH 30.1 (27.0-32.0) pg MCHC 33.9 (31.0-37.0) g/dL RDW Std Deviation 43.6 (28.0-62.0) fl RDW Coeff of Crys 13 (11.0-15.0) % Plt Count 256 (150-400) K/uL MPV 9.60 (7.40-12.00) fL Neut % (Auto) 65.6 (48.0-80.0) % Lymph % (Auto) 25.9 (16.0-40.0) % Brule % (Auto) 8.1 (0.0-15.0) % Eos % (Auto) 0.4 (0.0-7.0) % Baso % (Auto) 0.0 (0.0-1.5) % Neut # (Auto) 5.6 (1.4-5.7) K/uL Lymph # (Auto) 2.2 (0.6-2.4) K/uL Brule # (Auto) 0.7 (0.0-0.8) K/uL Eos # (Auto) 0.0 (0.0-0.7) K/uL Baso # (Auto) 0.0 (0.0-0.1) K/uL Nucleated RBC % 0.0 /100WBC Nucleated RBCs # 0 K/uL Sodium 137 (136-145) mmol/L Potassium 4.2 (3.5-5.1) mmol/L Chloride 105 (98-107) mmol/L Carbon Dioxide 25.8 (21.0-32.0) mmol/L BUN 10 (7.0-18.0) mg/dL Creatinine 0.9 (0.6-1.0) mg/dL Est Cr Clr Drug Dosing 73.12 mL/min Estimated GFR (MDRD) > 60.0 ml/min Glucose 103 (74-106) mg/dL Calcium 7.9 L (8.5-10.1) mg/dL Med Orders - Current: Current Medications Lactated Ringer's (Ringers, Lactated) 1,000 mls @ 100 mls/hr IV ASDIRECTED [facility] Last Admin: 07/06/21 11:35 Dose: 100 mls/hr Documented by: Ketorolac Tromethamine (Ketorolac 30 Mg/Ml Sdv) 30 mg IVPUSH Q6H PRN PRN Reason: Pain (severe 7-10) Stop: 07/11/21 09:11 Last Admin: 07/06/21 21:05 Dose: 30 mg Documented by: Morphine Sulfate (Morphine 4 Mg/Ml Vial) 4 mg IVPUSH Q2H PRN PRN Reason: Pain (severe 7-10) Last Admin: 07/06/21 15:30 Dose: 4 mg Documented by: Ondansetron HCl (Ondansetron 4 Mg/2 Ml Sdv) 4 mg IVPUSH Q6H PRN PRN Reason: Nausea/Vomiting Oxycodone/Acetaminophen (Acetaminophen/Oxycodone 325-5 Mg Tab) 1 tab PO Q4H PRN PRN Reason: Pain (moderate 4-6) Oxycodone/Acetaminophen (Acetaminophen/Oxycodone 325-5 Mg Tab) 2 tab PO Q4H PRN PRN Reason: Pain (moderate 4-6) Last Admin: 07/07/21 05:06 Dose: 2 tab Documented by: Promethazine HCl (Promethazine 25 Mg/Ml Sdv) 25 mg IM Q6H PRN PRN Reason: Nausea/Vomiting Sodium Chloride (Sodium Chloride 0.9% 10 Ml Syringe) 10 ml FLUSH ASDIRECTED PRN PRN Reason: Keep Vein Open Sodium Chloride (Sodium Chloride 0.9% 2.5 Ml Syringe) 2.5 ml FLUSH ASDIRECTED PRN PRN Reason: Keep Vein Open Sodium Chloride (Sodium Chloride 0.9% 20 Ml Sdv) 10 ml IV ASDIRECTED PRN PRN Reason: IV Use Discontinued Medications Albuterol (Albuterol 0.083% 2.5 Mg/3 Ml Neb Soln) 2.5 mg NEB ONETIME PRN PRN Reason: Wheezing Bupivacaine HCl (Bupivacaine 0.25% 10 Ml Sdv) Confirm Administered Dose 10 ml .ROUTE .STK-MED ONE Stop: 07/06/21 07:50 Dexamethasone (Dexamethasone 4 Mg/Ml 5 Ml Mdv) Confirm Administered Dose 20 mg .ROUTE .STK-MED ONE Stop: 07/06/21 08:10 Dexmedetomidine HCl (Dexmedetomidine 200 Mcg/2 Ml Sdv) Confirm Administered Dose 200 mcg .ROUTE .STK-MED ONE Stop: 07/06/21 07:28 Droperidol (Droperidol 5 Mg/2 Ml Sdv) 0.625 mg IVPUSH ONETIME PRN PRN Reason: Nausea/Vomiting Fentanyl (Fentanyl 100 Mcg/2 Ml Sdv) 50 mcg IVPUSH Q5M PRN PRN Reason: Pain (mild 1-3) Last Admin: 07/06/21 09:26 Dose: 50 mcg Documented by: Fluorescein Sodium (Fluorescein 5 Ml Vial) Confirm Administered Dose 5 ml .ROUTE .STK-MED ONE Stop: 07/06/21 07:50 Furosemide (Furosemide 40 Mg/4 Ml Vial) Confirm Administered Dose 40 mg .ROUTE .STK-MED ONE Stop: 07/06/21 08:56 Hydromorphone HCl (Hydromorphone 1 Mg/Ml Syringe) 1 mg IVPUSH Q10M PRN PRN Reason: Pain (moderate 4-6) Last Admin: 07/06/21 09:42 Dose: 1 mg Documented by: Cefazolin Sodium/Dextrose 1 gm (/ Premix) 50 mls @ 100 mls/hr IV ONETIME ONE Stop: 07/06/21 05:29 Sodium Chloride (Normal Saline) Confirm Administered Dose 20 mls @ as directed .ROUTE .STK-MED ONE Stop: 07/06/21 07:31 Cefazolin Sodium/Dextrose (Ancef) Confirm Administered Dose 50 mls @ as directed .ROUTE .STK-MED ONE Stop: 07/06/21 08:10 Acetaminophen (Ofirmev 1000 Mg/100 Ml) Confirm Administered Dose 100 mls @ as directed .ROUTE .STK-MED ONE Stop: 07/06/21 08:29 Ketorolac Tromethamine (Ketorolac 30 Mg/Ml Sdv) Confirm Administered Dose 30 mg .ROUTE .STK-MED ONE Stop: 07/06/21 08:28 Ketorolac Tromethamine (Ketorolac 30 Mg/Ml Sdv) 30 mg IVPUSH ONETIME ONE Stop: 07/06/21 09:11 Lidocaine HCl (Lidocaine 2% 100 Mg/5 Ml Syringe) Confirm Administered Dose 100 mg .ROUTE .STK-MED ONE Stop: 07/06/21 07:28 Metoclopramide HCl (Metoclopramide 10 Mg/2 Ml Sdv) 10 mg IVPUSH ONETIME PRN PRN Reason: Nausea/Vomiting Midazolam HCl (Midazolam 1 Mg/Ml 2 Ml Sdv) Confirm Administered Dose 2 mg .ROUTE .STK-MED ONE Stop: 07/06/21 07:33 Morphine Sulfate (Morphine 2 Mg/Ml Syringe) 2 mg IVPUSH Q10M PRN PRN Reason: Pain (severe 7-10) Naloxone HCl (Naloxone 0.4 Mg/Ml Sdv) 0.1 mg IVPUSH ASDIRECTED PRN PRN Reason: Respiratory Depression Ondansetron HCl (Ondansetron 4 Mg/2 Ml Sdv) 4 mg IVPUSH ONETIME PRN PRN Reason: Nausea/Vomiting Ondansetron HCl (Ondansetron 4 Mg/2 Ml Sdv) Confirm Administered Dose 4 mg .ROUTE .STK-MED ONE Stop: 07/06/21 08:28 Propofol (Propofol 200 Mg/20 Ml Sdv) Confirm Administered Dose 200 mg .ROUTE .STK-MED ONE Stop: 07/06/21 07:28 Rocuronium Kuna (Rocuronium Kuna 50 Mg/5 Ml Syringe) Confirm Administered Dose 50 mg .ROUTE .STK-MED ONE Stop: 07/06/21 07:28 Scopolamine (Scopolamine 1.5 Mg Transdermal Patch) Confirm Administered Dose 1.5 mg .ROUTE .STK-MED ONE Stop: 07/06/21 07:17 Last Admin: 07/06/21 07:38 Dose: 1.5 mg Documented by: Sugammadex Sodium (Sugammadex Sodium 200 Mg/2 Ml Vial) Confirm Administered Dose 200 mg .ROUTE .STK-MED ONE Stop: 07/06/21 08:28 - Exam General: Alert, Oriented Lungs: Normal Respiratory Effort Cardiovascular: Regular Rate, Regular Rhythm GI/Abdominal Exam: Normal Bowel Sounds, Soft Extremities: Pedal Edema (trace). No: Jose David's Sign Skin: Warm, Dry, Intact Neurological: No New Focal Deficit Psy/Mental Status: Alert, Normal Affect, Normal Mood Sepsis Event Note - Evaluation Sepsis Screening Result: No Definite Risk - Focused Exam Vital Signs: Vital Signs Temp Pulse Resp BP Pulse Ox 07/07/21 07:56 36.4 C 62 18 108/60 94 L 07/07/21 04:00 37.1 C 71 15 91/56 L 97 07/07/21 00:00 36.7 C 95 14 116/80 97 - Problem List & Annotations (1) Status post hysterectomy SNOMED Code(s): 365958743, 986003322, 615665451 Code(s): Z90.710 - ACQUIRED ABSENCE OF BOTH CERVIX AND UTERUS Status: Acute Current Visit: Yes - Problem List Review Problem List Initiated/Reviewed/Updated: Yes - My Orders Last 24 Hours: Active Orders 24 hr Category Date Time Status Ready for Discharge [RC] PER UNIT ROUTINE Care 07/07/21 10:39 Active Regular Diet [DIET] Diet 07/06/21 Lunch Active Medication Orders Lactated Ringer's (Ringers, Lactated) 1,000 mls @ 100 mls/hr IV ASDIRECTED LARRY Last Admin: 07/06/21 11:35 Dose: 100 mls/hr Documented by: Infusion: 07/06/21 11:35 Dose: 100 mls/hr Documented by: Admin: 07/06/21 07:01 Dose: 100 mls/hr Documented by: EDSON Ketorolac Tromethamine (Ketorolac 30 Mg/Ml Sdv) 30 mg IVPUSH Q6H PRN PRN Reason: Pain (severe 7-10) Stop: 07/11/21 09:11 Last Admin: 07/06/21 21:05 Dose: 30 mg Documented by: Admin: 07/06/21 14:40 Dose: 30 mg Documented by: LOLI Morphine Sulfate (Morphine 4 Mg/Ml Vial) 4 mg IVPUSH Q2H PRN PRN Reason: Pain (severe 7-10) Last Admin: 07/06/21 15:30 Dose: 4 mg Documented by: LOLI Ondansetron HCl (Ondansetron 4 Mg/2 Ml Sdv) 4 mg IVPUSH Q6H PRN PRN Reason: Nausea/Vomiting Oxycodone/Acetaminophen (Acetaminophen/Oxycodone 325-5 Mg Tab) 1 tab PO Q4H PRN PRN Reason: Pain (moderate 4-6) Oxycodone/Acetaminophen (Acetaminophen/Oxycodone 325-5 Mg Tab) 2 tab PO Q4H PRN PRN Reason: Pain (moderate 4-6) Last Admin: 07/07/21 05:06 Dose: 2 tab Documented by: Admin: 07/06/21 22:18 Dose: 2 tab Documented by: Admin: 07/06/21 17:32 Dose: 2 tab Documented by: LOLI Promethazine HCl (Promethazine 25 Mg/Ml Sdv) 25 mg IM Q6H PRN PRN Reason: Nausea/Vomiting Sodium Chloride (Sodium Chloride 0.9% 10 Ml Syringe) 10 ml FLUSH ASDIRECTED PRN PRN Reason: Keep Vein Open Sodium Chloride (Sodium Chloride 0.9% 2.5 Ml Syringe) 2.5 ml FLUSH ASDIRECTED PRN PRN Reason: Keep Vein Open Sodium Chloride (Sodium Chloride 0.9% 20 Ml Sdv) 10 ml IV ASDIRECTED PRN PRN Reason: IV Use - Assessment Assessment (Free Text/Narrative):: POD 1 status post TVH - Plan Plan (Free Text/Narrative):: VS and labs reassuring. Creatinine up slightly today, will repeat at postop appointment. Patient is ambulating, voiding and tolerating regular diet. Discharge to home today. Discharge instructions reviewed. Follow up at [facility] 2 weeks.
== END 2021-07-07 12:29 | disposition home or self-care (01) ==
LOC: MW.SDS 06:27 → MW.OB 13:23 → UNDOADMOB 07-07 07:35 → MW.SDS 07-07 07:48
PROVIDERS: ATTEND Obstetrics & Gynecology
DX: D25.0 Submucous leiomyoma of uterus (principal); N80.0 Endometriosis of uterus; N87.9 Dysplasia of cervix uteri, unspecified; N72 Inflammatory disease of cervix uteri; F17.210 Nicotine dependence, cigarettes, uncomplicated; N76.0 Acute vaginitis; G43.109 Migraine with aura, not intractable, without status migrainosus; I10 Essential (primary) hypertension; Z79.899 Other long term (current) drug therapy; Z98.890 Other specified postprocedural states
CPT/HCPCS: 36415; 58260; 80048; 85025; 86850; 86900; 86901; A9270; J0131; J0690; J1100; J1170; J1885; J1940; J2250; J2270; J2704; J3010; J3490; J7120; 00944; J2405

== ENCOUNTER 2021-08-27 17:31 | Observation (INO) | payer BC ==
[2021-08-27] MEDS ORDERED: Sodium Chloride 0.9% 1,000 ML IV ONE (18:31)
[2021-08-27] MEDS ORDERED: Ondansetron 4 MG/2 ML SDV IVPUSH ONE (18:31)
[2021-08-27] MEDS ORDERED: Ketorolac 30 MG/ML SDV IVPUSH ONE (18:31)
--- NOTE | 2021-08-27 18:45 | EDM.PDOC ---
<Ace Gallardo - Last Filed: 08/27/21 18:53> ED HPI GENERAL MEDICAL PROBLEM - General Chief Complaint: Abdominal Pain Stated Complaint: RT SIDE PAIN Time Seen by Provider: 08/27/21 18:19 Source of Information: Reports: Patient History Limitations: Reports: No Limitations - History of Present Illness INITIAL COMMENTS - FREE TEXT/NARRATIVE: 46-year-old female past medical history hysterectomy, multidrug-resistant urinary tract infection presents for right-sided flank pain worsening over the last 2 days. Patient states that she was in normal state of health until 2 days ago she began to note an aching, burning pain in her right-sided flank. Over the last couple days the pain has worsened and now radiates into her right side and right lower quadrant abdomen. She had not noted any dysuria or hematuria, however, when giving a urine sample here in the emergency department she stated that it looked a bit orange concerning for hematuria. She has not had any dysuria. She notes that yesterday night she began to develop fever and checked her temperature at home which was 100.7. She denies any nausea or vomiting. Abdominal Pain Score (Numeric/FACES): 6 - Related Data Allergies Allergy/AdvReac Type Severity Reaction Status Date / Time No Known Allergies Allergy Verified 08/28/21 02:22 Home Meds: Home Meds Topiramate [Topamax] 125 mg PO BEDTIME 06/22/15 [History] Past Medical History HEENT History: Reports: Other (See Below) Other HEENT History: hx of Otosclerosis, wears glasses Cardiovascular History: Reports: Other (See Below) Other Cardiovascular History: hx of mild HTN Respiratory History: Reports: None Gastrointestinal History: Reports: Hemorrhoids, Other (See Below) Other Gastrointestinal History: heartburn in the past Genitourinary History: Reports: Renal Calculus Other Genitourinary History: hx of passing a kidney stone 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: Musculoskeletal History: Reports: Fracture Other Musculoskeletal History: hx of fx clavicle, right wrist, fibula and vertebrate L3 and S4-5 Neurological History: Reports: Concussion, Migraines Other Neuro History: takes medication for migraines daily Psychiatric History: Reports: Anxiety Other Psychiatric History: some claustrophobia Endocrine/Metabolic History: Reports: None Hematologic History: Reports: Iron Deficiency Immunologic History: Reports: None Oncologic (Cancer) History: Reports: None Dermatologic History: Reports: None - Past Surgical History Head Surgeries/Procedures: Reports: None HEENT Surgical History: Reports: Other (See Below) Other HEENT Surgeries/Procedures: replacement of "rods" in both ears- has titanium parts Cardiovascular Surgical History: Reports: None Respiratory Surgical History: Reports: None GI Surgical History: Reports: Colonoscopy Female Surgical History: Reports: Tubal Ligation, Other (See Below) Other Female Surgeries/Procedures: had BTL and reversal, "clamps" put on tubes and then bilateral Salpingectomy Endocrine Surgical History: Reports: None Neurological Surgical History: Reports: None Musculoskeletal Surgical History: Reports: None Oncologic Surgical History: Reports: None Dermatological Surgical History: Reports: None Social & Family History - Family History Family Medical History: No Pertinent Family History - Tobacco Use Second Hand Smoke Exposure: No - Caffeine Use Caffeine Use: Reports: None - Recreational Drug Use Recreational Drug Use: No ED ROS GENERAL - Review of Systems Review Of Systems: Comprehensive ROS is negative, except as noted in HPI. ED EXAM, GENERAL - Physical Exam Exam: See Below Exam Limited By: No Limitations General Appearance: Alert, WD/WN, No Apparent Distress Ears: Hearing Grossly Normal Throat/Mouth: Normal Voice, No Airway Compromise Head: Atraumatic, Normocephalic Respiratory/Chest: No Respiratory Distress, Lungs Clear, Normal Breath Sounds, No Accessory Muscle Use Cardiovascular: Normal Peripheral Pulses, Regular Rate, Rhythm GI/Abdominal: Soft, Other (RLQ TTP with guarding, suprapubic TTP) Back Exam: CVA Tenderness (R). No: CVA Tenderness (L) Extremities: Normal Inspection Neurological: Alert, Normal Cognition, Normal Gait Psychiatric: Normal Affect, Normal Mood Skin Exam: Warm, Dry, Intact, Normal Color Course - Re-Assessments/Exams Free Text/Narrative Re-Assessment/Exam: 08/27/21 18:44 We will get urinalysis, urine testing, basic labs. Will give Toradol and Zofran for analgesia. Will consider CT imaging of the abdomen and pelvis to rule out renal stone. 08/27/21 18:49 Patient does have evidence of nitrite positive UTI on urinalysis. I did review the sensitivity of her recent urinary tract infection in July which is only sensitive to meropenem and ertapenem. 1 dose of meropenem has been ordered. CT A/P has been ordered to assess for signs of pyelonephritis vs less likely renal stone. 08/27/21 19:00 Patient care transitioned to Dr. Nelson to f/u labs, CT imaging, reassessment, and disposition. Departure - Departure Disposition: Admitted As Inpatient 66 Clinical Impression: UTI (urinary tract infection) - Discharge Information Sepsis Event Note (ED) - Evaluation Sepsis Screening Result: No Definite Risk <Vlad Nelson - Last Filed: 08/28/21 06:42> ED HPI GENERAL MEDICAL PROBLEM - History of Present Illness INITIAL COMMENTS - FREE TEXT/NARRATIVE: Patient was signed out to me by day team physician at 7pm. I promptly performed a detailed physical examination and my examination was done after ED treatments were initiated by the signout provider. Patient has been under the care of previous provider up until this point. On reevaluation patient continued to remain stable. Laboratory: CBC is unremarkable. BMP is unremarkable. Urinalysis is positive. Covid is negative. The radiological images were viewed by myself along with reading the report from the radiologist. CT abdomen pelvis without contrast reveals new right renal pelvis stone with minimal dilation of the intrarenal collecting systems and perirenal stranding out of proportion to dilation. Differential considerations include pyelonephritis and obstruction. Tiny obstructing stone in the left kidney. Bilobed right adnexal mass. After imaging I did contact [facility] and spoke with Dr. Maxwell. At this time he recommended IV antibiotics until infection is cleared and then follow-up outpatient given there is no obvious signs of obstruction. Given this I did discuss with Dr. Robb admission given the patient has significant drug resistance and will likely need outpatient IV antibiotic infusions. He did accept the patient for admission. The patient was amenable to this plan [facility] [place], [place] [phone] DISPOSITION: Patient was admitted to the hospital in stable condition CONDITION: Fair PROCEDURES: None FINAL IMPRESSION(S)/DIAGNOSES: 1. Acute right renal pelvis stone 2. Acute drug-resistant urinary tract infection Vlad Nelson M.D. ED ROS GENERAL - Review of Systems Review Of Systems: See Below ED EXAM, GENERAL - Physical Exam Exam: See Below Course - Vital Signs Last Recorded V/S: Last Vital Signs Temp 36.2 C 08/28/21 04:30 Pulse 79 01/08/22 04:30 Resp 16 08/28/21 04:30 BP 115/69 08/28/21 04:30 Pulse Ox 100 08/27/21 22:51 - Orders/Labs/Meds Orders: Active Orders 24 hr Category Date Time Status CULTURE URINE [MREF] Stat Lab 08/27/21 18:15 Received Saline Lock Insert [OM.PC] Stat Oth 08/27/21 18:31 Ordered Medication Orders Acetaminophen (Acetaminophen 325 Mg Tab) 650 mg PO Q4H PRN PRN Reason: Pain Last Admin: 08/28/21 03:26 Dose: 650 mg Documented by: HAYLIE Meropenem/Sodium Chloride (Meropenem In Ns 1 Gm/50 Ml) 50 mls @ 100 mls/hr IV Q8H LARRY Last Admin: 08/28/21 04:50 Dose: 100 mls/hr Documented by: HAYLIE Morphine Sulfate (Morphine 2 Mg/Ml Syringe) 2 mg IVPUSH Q2H PRN PRN Reason: Pain Last Admin: 08/28/21 05:08 Dose: 2 mg Documented by: HAYLIE Oxycodone HCl (Oxycodone 5 Mg Tab) 5 mg PO Q4H PRN PRN Reason: Pain Last Admin: 08/28/21 00:35 Dose: 5 mg Documented by: HAYLIE Labs: Laboratory Tests 08/27/21 08/27/21 08/27/21 Range/Units 18:15 18:15 19:08 WBC (4.0-11.0) K/uL RBC (4.30-5.90) M/uL Hgb (12.0-16.0) g/dL Hct (36.0-46.0) % MCV (80.0-98.0) fL MCH (27.0-32.0) pg MCHC (31.0-37.0) g/dL RDW Std Deviation (28.0-62.0) fl RDW Coeff of Crys (11.0-15.0) % Plt Count (150-400) K/uL MPV (7.40-12.00) fL Neut % (Auto) (48.0-80.0) % Lymph % (Auto) (16.0-40.0) % [place]ard % (Auto) (0.0-15.0) % Eos % (Auto) (0.0-7.0) % Baso % (Auto) (0.0-1.5) % Neut # (Auto) (1.4-5.7) K/uL Lymph # (Auto) (0.6-2.4) K/uL [place] # (Auto) (0.0-0.8) K/uL Eos # (Auto) (0.0-0.7) K/uL Baso # (Auto) (0.0-0.1) K/uL Nucleated RBC % /100WBC Nucleated RBCs # K/uL Sodium (136-145) mmol/L Potassium (3.5-5.1) mmol/L Chloride (98-107) mmol/L Carbon Dioxide (21.0-32.0) mmol/L BUN (7.0-18.0) mg/dL Creatinine (0.6-1.0) mg/dL Est Cr Clr Drug Dosing mL/min Estimated GFR (MDRD) ml/min Glucose (74-106) mg/dL Lactic Acid 0.4 (0.4-2.0) mmol/L Calcium (8.5-10.1) mg/dL Total Bilirubin (0.2-1.0) mg/dL AST (15-37) IU/L ALT (14-63) IU/L Alkaline Phosphatase (46-116) U/L Total Protein (6.4-8.2) g/dL Albumin (3.4-5.0) g/dL Globulin (2.6-4.0) g/dL Albumin/Globulin Ratio (0.9-1.6) Lipase (73-393) U/L Urine Color YELLOW Urine Appearance SLT CLOUDY Urine pH 6.0 (5.0-8.0) Ur Specific [place] 1.025 (1.001-1.035) Urine Protein TRACE H (NEGATIVE) mg/dL Urine Glucose (UA) NEGATIVE (NEGATIVE) mg/dL Urine Ketones 15 H (NEGATIVE) mg/dL Urine Occult Blood SMALL H (NEGATIVE) Urine Nitrite POSITIVE H (NEGATIVE) Urine Bilirubin NEGATIVE (NEGATIVE) Urine Urobilinogen 1.0 (<2.0) EU/dL Ur Leukocyte Esterase SMALL H (NEGATIVE) Urine RBC 0-3 (0-2/HPF) Urine WBC 90-100 (0-5/HPF) Ur Epithelial Cells FEW (NONE-FEW) Urine Bacteria 1+ H (NEGATIVE) Urine HCG, Qual NEGATIVE (NEGATIVE) SARS-CoV-2 RNA (RANDELL) (NEGATIVE) 08/27/21 08/27/21 08/27/21 Range/Units 19:08 19:08 19:09 WBC 7.74 (4.0-11.0) K/uL RBC 4.56 (4.30-5.90) M/uL Hgb 13.6 (12.0-16.0) g/dL Hct 39.8 (36.0-46.0) % MCV 87.3 (80.0-98.0) fL MCH 29.8 (27.0-32.0) pg MCHC 34.2 (31.0-37.0) g/dL RDW Std Deviation 41.8 (28.0-62.0) fl RDW Coeff of Crys 13 (11.0-15.0) % Plt Count 283 (150-400) K/uL MPV 10.00 (7.40-12.00) fL Neut % (Auto) 61.6 (48.0-80.0) % Lymph % (Auto) 27.3 (16.0-40.0) % [place] % (Auto) 10.2 (0.0-15.0) % Eos % (Auto) 0.8 (0.0-7.0) % Baso % (Auto) 0.1 (0.0-1.5) % Neut # (Auto) 4.8 (1.4-5.7) K/uL Lymph # (Auto) 2.1 (0.6-2.4) K/uL [place] # (Auto) 0.8 (0.0-0.8) K/uL Eos # (Auto) 0.1 (0.0-0.7) K/uL Baso # (Auto) 0.0 (0.0-0.1) K/uL Nucleated RBC % 0.0 /100WBC Nucleated RBCs # 0 K/uL Sodium 137 (136-145) mmol/L Potassium 3.6 (3.5-5.1) mmol/L Chloride 102 (98-107) mmol/L Carbon Dioxide 22.1 (21.0-32.0) mmol/L BUN 13 (7.0-18.0) mg/dL Creatinine 0.7 (0.6-1.0) mg/dL Est Cr Clr Drug Dosing 94.01 mL/min Estimated GFR (MDRD) > 60.0 ml/min Glucose 88 (74-106) mg/dL Lactic Acid (0.4-2.0) mmol/L Calcium 8.8 (8.5-10.1) mg/dL Total Bilirubin 0.4 (0.2-1.0) mg/dL AST 16 (15-37) IU/L ALT 25 (14-63) IU/L Alkaline Phosphatase 74 (46-116) U/L Total Protein 8.1 (6.4-8.2) g/dL Albumin 3.8 (3.4-5.0) g/dL Globulin 4.3 H (2.6-4.0) g/dL Albumin/Globulin Ratio 0.9 (0.9-1.6) Lipase 96 (73-393) U/L Urine Color Urine Appearance Urine pH (5.0-8.0) Ur Specific [place] (1.001-1.035) Urine Protein (NEGATIVE) mg/dL Urine Glucose (UA) (NEGATIVE) mg/dL Urine Ketones (NEGATIVE) mg/dL Urine Occult Blood (NEGATIVE) Urine Nitrite (NEGATIVE) Urine Bilirubin (NEGATIVE) Urine Urobilinogen (<2.0) EU/dL Ur Leukocyte Esterase (NEGATIVE) Urine RBC (0-2/HPF) Urine WBC (0-5/HPF) Ur Epithelial Cells (NONE-FEW) Urine Bacteria (NEGATIVE) Urine HCG, Qual (NEGATIVE) SARS-CoV-2 RNA (RANDELL) NEGATIVE (NEGATIVE) Meds: Medications Generic Name Dose Route Start Last Admin Trade Name Freq PRN Reason Stop Dose Admin Acetaminophen 650 mg 08/27/21 23:17 08/28/21 03:26 Acetaminophen 325 Mg Tab PO 650 mg Q4H PRN Administration Pain Meropenem/Sodium Chloride 50 mls @ 100 mls/hr 08/28/21 04:00 08/28/21 04:50 Meropenem In Ns 1 Gm/50 Ml IV 100 mls/hr Q8H LARRY Administration Morphine Sulfate 2 mg 08/27/21 23:17 08/28/21 05:08 Morphine 2 Mg/Ml Syringe IVPUSH 2 mg Q2H PRN Administration Pain Oxycodone HCl 5 mg 08/27/21 23:17 08/28/21 00:35 Oxycodone 5 Mg Tab PO 5 mg Q4H PRN Administration Pain Discontinued Medications Generic Name Dose Route Start Last Admin Trade Name Anuja PRN Reason Stop Dose Admin Sodium Chloride 1,000 mls @ 999 mls/hr 08/27/21 18:31 08/27/21 19:00 Normal Saline IV 08/27/21 19:31 999 mls/hr .Bolus ONE Administration Meropenem 2 gm/ Sodium 100 mls @ 100 mls/hr 08/27/21 18:48 08/27/21 21:47 Chloride IV 08/27/21 19:47 100 mls/hr ONETIME ONE Administration Meropenem 1 gm/ Sodium 100 mls @ 200 mls/hr 08/28/21 04:00 08/28/21 06:06 Chloride IV Not Given Q8H LARRY Ketorolac Tromethamine 15 mg 08/27/21 18:31 08/27/21 18:59 Ketorolac 30 Mg/Ml Sdv IVPUSH 08/27/21 18:32 15 mg ONETIME ONE Administration Ondansetron HCl 4 mg 08/27/21 18:31 08/27/21 19:00 Ondansetron 4 Mg/2 Ml Sdv IVPUSH 08/27/21 18:32 4 mg ONETIME ONE Administration Departure - Departure Time of Disposition: 21:32 Condition: Fair Sepsis Event Note (ED) - Focused Exam Vital Signs: Vital Signs Pulse BP Pulse Ox 08/27/21 21:30 86 128/82 99 08/27/21 20:30 88 98 08/27/21 19:30 91 125/82 97
[2021-08-27] MEDS ORDERED: Meropenem 2 GM in Sodium Chloride 0.9% 100 ML IV ONE (18:48)
[2021-08-27 20:02] LABS: BLOOD UREA NITROGEN,BUN 13 mg/dL (7.0-18.0); CARBON DIOXIDE,CO2 22.1 mmol/L (21.0-32.0); CHLORIDE,CL 102 mmol/L (98-107); GLUCOSE RANDOM 88 mg/dL (74-106); LIPASE 96 U/L (73-393); POTASSIUM,K 3.6 mmol/L (3.5-5.1); SODIUM,NA 137 mmol/L (136-145)
--- NOTE | 2021-08-27 20:34 | CT ---
INDICATION: Right flank pain. TECHNIQUE: Noncontrast CT abdomen and pelvis. COMPARISON: 06/30/[address] FINDINGS: There is a new stone in the right renal pelvis that measures 1.7 x 0.8 x 1.3 cm. Minimal dilation of the calices in the right kidney. There is stranding around the right kidney and the right renal pelvis. While this stranding could be due to obstruction, given the minimal hydronephrosis, pyelonephritis is also possible. No ureteral stones. Tiny nonobstructing stone in the lower pole of the left kidney, image 66 series 201. Liver, gallbladder, biliary tree, pancreas, spleen, adrenal glands, appear normal. Bowel is unremarkable. Appendix is normal. Hysterectomy. There is a bilobed right adnexal mass on image 135 of series 201 that measures 4.1 x 2.5 cm. This appears to arise from or is adjacent to the right ovary and is new from prior exam. Left ovary appears normal. No adenopathy, free air, or free fluid. Chronic L3 compression fracture. IMPRESSION: 1. New right renal pelvis stone with minimal dilation of the intrarenal collecting systems, and perirenal stranding out of proportion to the dilation. Differential considerations include pyelonephritis and obstruction. 2. Tiny nonobstructing stone in the left kidney. 3. Bilobed right adnexal mass. Non emergent pelvic ultrasound recommended. Please note that all CT scans at this facility use dose modulation, iterative reconstruction, and/or weight-based dosing when appropriate to reduce radiation dose to as low as reasonably achievable. Dictated by Shoaib Jones MD @ 08/27/2021 8:33:18 PM (Electronically Signed)
--- NOTE | 2021-08-27 22:53 | PCM.HP.2 ---
H&P History of Present Illness - General Date of Service: 08/27/21 Admit Problem/Dx: Admission Diagnosis/Problem Admission Diagnosis/Problem UTI, Urinary tract infectious disease - History of Present Illness Initial Comments - Free Text/Narative: 46 yo female with pmh of ESBL klebseilla who presents with flank pain and dysuria. UA is nitrate positive with pyuria. CT scan reports nonobstructing pelvic renal stone. ED physician did consult Urology who recommend outpatient follow up. Abdominal Pain Score (Numeric/FACES): 6 - Related Data Allergies/Adverse Reactions: Allergies Allergy/AdvReac Type Severity Reaction Status Date / Time No Known Allergies Allergy Verified 08/28/21 02:22 Home Medications: Home Meds RX: Topiramate [Topamax] 125 mg PO BEDTIME 06/22/15 [History] Past Medical History HEENT History: Reports: Other (See Below) Other HEENT History: hx of Otosclerosis, wears glasses Cardiovascular History: Reports: Other (See Below) Other Cardiovascular History: hx of mild HTN Respiratory History: Reports: None Gastrointestinal History: Reports: Hemorrhoids, Other (See Below) Other Gastrointestinal History: heartburn in the past Genitourinary History: Reports: Renal Calculus Other Genitourinary History: hx of passing a kidney stone 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: Musculoskeletal History: Reports: Fracture Other Musculoskeletal History: hx of fx clavicle, right wrist, fibula and vertebrate L3 and S4-5 Neurological History: Reports: Concussion, Migraines Other Neuro History: takes medication for migraines daily Psychiatric History: Reports: Anxiety Other Psychiatric History: some claustrophobia Endocrine/Metabolic History: Reports: None Hematologic History: Reports: Iron Deficiency Immunologic History: Reports: None Oncologic (Cancer) History: Reports: None Dermatologic History: Reports: None - Past Surgical History Head Surgeries/Procedures: Reports: None HEENT Surgical History: Reports: Other (See Below) Other HEENT Surgeries/Procedures: replacement of "rods" in both ears- has titanium parts Cardiovascular Surgical History: Reports: None Respiratory Surgical History: Reports: None GI Surgical History: Reports: Colonoscopy Female Surgical History: Reports: Tubal Ligation, Other (See Below) Other Female Surgeries/Procedures: had BTL and reversal, "clamps" put on tubes and then bilateral Salpingectomy Endocrine Surgical History: Reports: None Neurological Surgical History: Reports: None Musculoskeletal Surgical History: Reports: None Oncologic Surgical History: Reports: None Dermatological Surgical History: Reports: None Social & Family History - Family History Family Medical History: No Pertinent Family History - Tobacco Use Second Hand Smoke Exposure: No - Caffeine Use Caffeine Use: Reports: None - Recreational Drug Use Recreational Drug Use: No H&P Review of Systems - Review of Systems: Review Of Systems: Comprehensive ROS is negative, except as noted in HPI. Exam - Exam Exam: See Below - Vital Signs Vital Signs: Last Vital Signs Temp 36.2 C 08/27/21 18:07 Pulse 91 08/27/21 18:07 Resp 20 08/27/21 18:07 BP 124/80 08/27/21 18:07 Pulse Ox 99 08/27/21 18:07 Weight: 74.843 kg - Exam General: Alert, Oriented HEENT: Mucosa Moist & [place] Lungs: Clear to Auscultation, Normal Respiratory Effort Cardiovascular: Regular Rate, Regular Rhythm GI/Abdominal Exam: Normal Bowel Sounds, Soft, Non-Tender Extremities: Non-Tender, No Pedal Edema Skin: Warm, Dry, Intact - Patient Data Lab Results Last 24 hrs: Laboratory Results - last 24 hr 08/27/21 08/27/21 08/27/21 Range/Units 18:15 18:15 19:08 WBC (4.0-11.0) K/uL RBC (4.30-5.90) M/uL Hgb (12.0-16.0) g/dL Hct (36.0-46.0) % MCV (80.0-98.0) fL MCH (27.0-32.0) pg MCHC (31.0-37.0) g/dL RDW Std Deviation (28.0-62.0) fl RDW Coeff of Crys (11.0-15.0) % Plt Count (150-400) K/uL MPV (7.40-12.00) fL Neut % (Auto) (48.0-80.0) % Lymph % (Auto) (16.0-40.0) % [place] % (Auto) (0.0-15.0) % Eos % (Auto) (0.0-7.0) % Baso % (Auto) (0.0-1.5) % Neut # (Auto) (1.4-5.7) K/uL Lymph # (Auto) (0.6-2.4) K/uL [place] # (Auto) (0.0-0.8) K/uL Eos # (Auto) (0.0-0.7) K/uL Baso # (Auto) (0.0-0.1) K/uL Nucleated RBC % /100WBC Nucleated RBCs # K/uL Sodium (136-145) mmol/L Potassium (3.5-5.1) mmol/L Chloride (98-107) mmol/L Carbon Dioxide (21.0-32.0) mmol/L BUN (7.0-18.0) mg/dL Creatinine (0.6-1.0) mg/dL Est Cr Clr Drug Dosing mL/min Estimated GFR (MDRD) ml/min Glucose (74-106) mg/dL Lactic Acid 0.4 (0.4-2.0) mmol/L Calcium (8.5-10.1) mg/dL Total Bilirubin (0.2-1.0) mg/dL AST (15-37) IU/L ALT (14-63) IU/L Alkaline Phosphatase (46-116) U/L Total Protein (6.4-8.2) g/dL Albumin (3.4-5.0) g/dL Globulin (2.6-4.0) g/dL Albumin/Globulin Ratio (0.9-1.6) Lipase (73-393) U/L Urine Color YELLOW Urine Appearance SLT CLOUDY Urine pH 6.0 (5.0-8.0) Ur Specific [place] 1.025 (1.001-1.035) Urine Protein TRACE H (NEGATIVE) mg/dL Urine Glucose (UA) NEGATIVE (NEGATIVE) mg/dL Urine Ketones 15 H (NEGATIVE) mg/dL Urine Occult Blood SMALL H (NEGATIVE) Urine Nitrite POSITIVE H (NEGATIVE) Urine Bilirubin NEGATIVE (NEGATIVE) Urine Urobilinogen 1.0 (<2.0) EU/dL Ur Leukocyte Esterase SMALL H (NEGATIVE) Urine RBC 0-3 (0-2/HPF) Urine WBC 90-100 (0-5/HPF) Ur Epithelial Cells FEW (NONE-FEW) Urine Bacteria 1+ H (NEGATIVE) Urine HCG, Qual NEGATIVE (NEGATIVE) SARS-CoV-2 RNA (RANDELL) (NEGATIVE) 08/27/21 08/27/21 08/27/21 Range/Units 19:08 19:08 19:09 WBC 7.74 (4.0-11.0) K/uL RBC 4.56 (4.30-5.90) M/uL Hgb 13.6 (12.0-16.0) g/dL Hct 39.8 (36.0-46.0) % MCV 87.3 (80.0-98.0) fL MCH 29.8 (27.0-32.0) pg MCHC 34.2 (31.0-37.0) g/dL RDW Std Deviation 41.8 (28.0-62.0) fl RDW Coeff of Crys 13 (11.0-15.0) % Plt Count 283 (150-400) K/uL MPV 10.00 (7.40-12.00) fL Neut % (Auto) 61.6 (48.0-80.0) % Lymph % (Auto) 27.3 (16.0-40.0) % [place] % (Auto) 10.2 (0.0-15.0) % Eos % (Auto) 0.8 (0.0-7.0) % Baso % (Auto) 0.1 (0.0-1.5) % Neut # (Auto) 4.8 (1.4-5.7) K/uL Lymph # (Auto) 2.1 (0.6-2.4) K/uL [place] # (Auto) 0.8 (0.0-0.8) K/uL Eos # (Auto) 0.1 (0.0-0.7) K/uL Baso # (Auto) 0.0 (0.0-0.1) K/uL Nucleated RBC % 0.0 /100WBC Nucleated RBCs # 0 K/uL Sodium 137 (136-145) mmol/L Potassium 3.6 (3.5-5.1) mmol/L Chloride 102 (98-107) mmol/L Carbon Dioxide 22.1 (21.0-32.0) mmol/L BUN 13 (7.0-18.0) mg/dL Creatinine 0.7 (0.6-1.0) mg/dL Est Cr Clr Drug Dosing 94.01 mL/min Estimated GFR (MDRD) > 60.0 ml/min Glucose 88 (74-106) mg/dL Lactic Acid (0.4-2.0) mmol/L Calcium 8.8 (8.5-10.1) mg/dL Total Bilirubin 0.4 (0.2-1.0) mg/dL AST 16 (15-37) IU/L ALT 25 (14-63) IU/L Alkaline Phosphatase 74 (46-116) U/L Total Protein 8.1 (6.4-8.2) g/dL Albumin 3.8 (3.4-5.0) g/dL Globulin 4.3 H (2.6-4.0) g/dL Albumin/Globulin Ratio 0.9 (0.9-1.6) Lipase 96 (73-393) U/L Urine Color Urine Appearance Urine pH (5.0-8.0) Ur Specific [place] (1.001-1.035) Urine Protein (NEGATIVE) mg/dL Urine Glucose (UA) (NEGATIVE) mg/dL Urine Ketones (NEGATIVE) mg/dL Urine Occult Blood (NEGATIVE) Urine Nitrite (NEGATIVE) Urine Bilirubin (NEGATIVE) Urine Urobilinogen (<2.0) EU/dL Ur Leukocyte Esterase (NEGATIVE) Urine RBC (0-2/HPF) Urine WBC (0-5/HPF) Ur Epithelial Cells (NONE-FEW) Urine Bacteria (NEGATIVE) Urine HCG, Qual (NEGATIVE) SARS-CoV-2 RNA (RANDELL) NEGATIVE (NEGATIVE) Result Diagrams: 08/28/21 05:49 08/28/21 05:49 Sepsis Event Note - Evaluation Sepsis Screening Result: No Definite Risk - Focused Exam Vital Signs: Vital Signs Temp Pulse Resp BP Pulse Ox 08/27/21 18:07 36.2 C 91 20 124/80 99 - Problem List (1) Pyelonephritis SNOMED Code(s): 65129462 ICD Code: N12 - TUBULO-INTERSTITIAL NEPHRITIS, NOT SPCF ACUTE OR CHRONIC Status: Acute Current Visit: Yes Problem List Initiated/Reviewed/Updated: Yes Orders Last 24hrs: Active Orders 24 hr Category Date Time Status Admission Status [Patient Status] [ADT] Stat ADT 08/27/21 21:32 Active Antiembolic Devices [RC] PER UNIT ROUTINE Care 08/27/21 22:36 Ordered Oxygen Therapy [RC] PRN Care 08/27/21 22:35 Ordered Up ad Kaye [RC] ASDIRECTED Care 08/27/21 22:35 Ordered VTE/DVT Education [RC] PER UNIT ROUTINE Care 08/27/21 22:35 Ordered Vital Signs [RC] Q4H Care 08/27/21 22:35 Ordered Regular Diet [DIET] Diet 08/27/21 Breakfast Ordered BASIC METABOLIC PANEL,BMP [CHEM] AM Lab 08/28/21 05:11 Ordered CBC WITH AUTO DIFF [HEME] AM Lab 08/28/21 05:11 Ordered CULTURE URINE [MREF] Stat Lab 08/27/21 18:15 Received Meropenem [Merrem] 1 gm Med 08/28/21 04:00 Ordered Sodium Chloride 0.9% [Normal Saline] 100 ml IV Q8H Saline Lock Insert [OM.PC] Stat Oth 08/27/21 18:31 Ordered Sequential Compression Device [OM.PC] Per Unit Routine Oth 08/27/21 22:36 Ordered Resuscitation Status Routine Resus Stat 08/27/21 22:35 Ordered Medication Orders Meropenem 1 gm/ Sodium (Chloride) 100 mls @ 200 mls/hr IV Q8H [facility] Assessment/Plan Comment:: 46 yo female admitted with acute pyelonephritis. 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
[2021-08-27] MEDS ORDERED: oxyCODONE 5 MG Tab PO PRN (23:17)
[2021-08-28] MEDS: Acetaminophen 325 MG Tab PO PRN ×2 (03:26→07:53)
[2021-08-28] MEDS ORDERED: Meropenem 1 GM in Sodium Chloride 0.9% 100 ML IV SCH (04:00)
[2021-08-28] MEDS ORDERED: Meropenem Premix 50 ML IV SCH (04:00)
[2021-08-28] MEDS: Morphine 2 MG/ML SYRINGE IVPUSH PRN ×3 (05:08→12:54)
[2021-08-28 06:25] LABS: BLOOD UREA NITROGEN,BUN 15 mg/dL (7.0-18.0); CARBON DIOXIDE,CO2 22.8 mmol/L (21.0-32.0); CHLORIDE,CL 107 mmol/L (98-107); GLUCOSE RANDOM 96 mg/dL (74-106); POTASSIUM,K 3.9 mmol/L (3.5-5.1); SODIUM,NA 139 mmol/L (136-145)
--- NOTE | 2021-08-28 12:00 | PCM.DCSUM1 ---
Discharge Summary - Discharge Data Discharge Date: 08/28/21 Discharge Disposition: Home, Self-Care 01 Condition: Stable - Referral to Home Health Primary Care Physician: Paul Ulloa MD - Discharge Diagnosis/Problem(s) (1) Pyelonephritis SNOMED Code(s): 91847718 ICD Code: N12 - TUBULO-INTERSTITIAL NEPHRITIS, NOT SPCF ACUTE OR CHRONIC Status: Acute Current Visit: Yes - Patient Summary/Data Hospital Course: 46 yo female with pmh of ESBL Klebsielleae who presents with flank pain and dysuria. UA is nitrate positive with pyuria. CT scan reports nonobstructing right pelvic renal stone with perirenal stranding. ED physician did consult Urology who recommend outpatient follow up. Patient was treated with meropenem. Her symptoms did improve and today she is requesting discharge. She was discharged on Ertapenem IV for ten days. Urine cultures is still pending and may need to adjust antibiotic regiment pending results. She is to follow up with Dr. Ulloa. CT scan also reported bilobed adnexal mass. Patient was informed of the results and recommendation of pelvic ultrasound and will follow up with Dr. Dr. Castillo. - Patient Instructions Diet: Regular Diet as Tolerated Notify Provider of: Fever, Increased Pain, Nausea and/or Vomiting Other/Special Instructions: You will need ten days of IV antibiotics. Treatment plan may chenge pending results of urine culture. Please follow up with Dr. Ulloa and Urology regarding your kidney stone. CT scan also shows Pelvic mass. We recommend follow up with pelvic ultrasound. - Discharge Plan Prescriptions/Med Rec: Ertapenem [INVanz] 1 gm IV Q24H #10 vial Home Medications: Home Meds Topiramate [Topamax] 125 mg PO BEDTIME 06/22/15 [History] Ertapenem [INVanz] 1 gm IV Q24H #10 vial 08/28/21 [Rx] Patient Handouts: Pyelonephritis, Adult, Ertapenem Injection, Urinary Tract Infection, Adult Referrals: Paul Ulloa MD [Primary Care Provider] - (For outpatient IV therapy.Follow up in 1 week.) - Discharge Summary/Plan Comment DC Time >30 min.: No Total # of Minutes for Discharge Time: 25 - Patient Data Vitals - Most Recent: Last Vital Signs Temp 36.6 C 08/28/21 08:00 Pulse 97 08/28/21 08:00 Resp 17 08/28/21 08:00 BP 124/73 08/28/21 08:00 Pulse Ox 97 08/28/21 08:00 Weight - Most Recent: 75.841 kg I&O - Last 24 hours: Intake & Output 08/27/21 08/28/21 08/28/21 22:59 06:59 14:59 Intake Total 240 Output Total 400 400 Balance -160 -400 Lab Results - Last 24 hrs: Laboratory Results - last 24 hr 08/27/21 08/27/21 08/27/21 Range/Units 18:15 18:15 19:08 WBC (4.0-11.0) K/uL RBC (4.30-5.90) M/uL Hgb (12.0-16.0) g/dL Hct (36.0-46.0) % MCV (80.0-98.0) fL MCH (27.0-32.0) pg MCHC (31.0-37.0) g/dL RDW Std Deviation (28.0-62.0) fl RDW Coeff of Crys (11.0-15.0) % Plt Count (150-400) K/uL MPV (7.40-12.00) fL Neut % (Auto) (48.0-80.0) % Lymph % (Auto) (16.0-40.0) % [place] % (Auto) (0.0-15.0) % Eos % (Auto) (0.0-7.0) % Baso % (Auto) (0.0-1.5) % Neut # (Auto) (1.4-5.7) K/uL Lymph # (Auto) (0.6-2.4) K/uL [place] # (Auto) (0.0-0.8) K/uL Eos # (Auto) (0.0-0.7) K/uL Baso # (Auto) (0.0-0.1) K/uL Nucleated RBC % /100WBC Nucleated RBCs # K/uL Sodium (136-145) mmol/L Potassium (3.5-5.1) mmol/L Chloride (98-107) mmol/L Carbon Dioxide (21.0-32.0) mmol/L BUN (7.0-18.0) mg/dL Creatinine (0.6-1.0) mg/dL Est Cr Clr Drug Dosing mL/min Estimated GFR (MDRD) ml/min Glucose (74-106) mg/dL Lactic Acid 0.4 (0.4-2.0) mmol/L Calcium (8.5-10.1) mg/dL Total Bilirubin (0.2-1.0) mg/dL AST (15-37) IU/L ALT (14-63) IU/L Alkaline Phosphatase (46-116) U/L Total Protein (6.4-8.2) g/dL Albumin (3.4-5.0) g/dL Globulin (2.6-4.0) g/dL Albumin/Globulin Ratio (0.9-1.6) Lipase (73-393) U/L Urine Color YELLOW Urine Appearance SLT CLOUDY Urine pH 6.0 (5.0-8.0) Ur Specific [place] 1.025 (1.001-1.035) Urine Protein TRACE H (NEGATIVE) mg/dL Urine Glucose (UA) NEGATIVE (NEGATIVE) mg/dL Urine Ketones 15 H (NEGATIVE) mg/dL Urine Occult Blood SMALL H (NEGATIVE) Urine Nitrite POSITIVE H (NEGATIVE) Urine Bilirubin NEGATIVE (NEGATIVE) Urine Urobilinogen 1.0 (<2.0) EU/dL Ur Leukocyte Esterase SMALL H (NEGATIVE) Urine RBC 0-3 (0-2/HPF) Urine WBC 90-100 (0-5/HPF) Ur Epithelial Cells FEW (NONE-FEW) Urine Bacteria 1+ H (NEGATIVE) Urine HCG, Qual NEGATIVE (NEGATIVE) SARS-CoV-2 RNA (RANDELL) (NEGATIVE) 08/27/21 08/27/21 08/27/21 Range/Units 19:08 19:08 19:09 WBC 7.74 (4.0-11.0) K/uL RBC 4.56 (4.30-5.90) M/uL Hgb 13.6 (12.0-16.0) g/dL Hct 39.8 (36.0-46.0) % MCV 87.3 (80.0-98.0) fL MCH 29.8 (27.0-32.0) pg MCHC 34.2 (31.0-37.0) g/dL RDW Std Deviation 41.8 (28.0-62.0) fl RDW Coeff of Crys 13 (11.0-15.0) % Plt Count 283 (150-400) K/uL MPV 10.00 (7.40-12.00) fL Neut % (Auto) 61.6 (48.0-80.0) % Lymph % (Auto) 27.3 (16.0-40.0) % [place] % (Auto) 10.2 (0.0-15.0) % Eos % (Auto) 0.8 (0.0-7.0) % Baso % (Auto) 0.1 (0.0-1.5) % Neut # (Auto) 4.8 (1.4-5.7) K/uL Lymph # (Auto) 2.1 (0.6-2.4) K/uL [place] # (Auto) 0.8 (0.0-0.8) K/uL Eos # (Auto) 0.1 (0.0-0.7) K/uL Baso # (Auto) 0.0 (0.0-0.1) K/uL Nucleated RBC % 0.0 /100WBC Nucleated RBCs # 0 K/uL Sodium 137 (136-145) mmol/L Potassium 3.6 (3.5-5.1) mmol/L Chloride 102 (98-107) mmol/L Carbon Dioxide 22.1 (21.0-32.0) mmol/L BUN 13 (7.0-18.0) mg/dL Creatinine 0.7 (0.6-1.0) mg/dL Est Cr Clr Drug Dosing 94.01 mL/min Estimated GFR (MDRD) > 60.0 ml/min Glucose 88 (74-106) mg/dL Lactic Acid (0.4-2.0) mmol/L Calcium 8.8 (8.5-10.1) mg/dL Total Bilirubin 0.4 (0.2-1.0) mg/dL AST 16 (15-37) IU/L ALT 25 (14-63) IU/L Alkaline Phosphatase 74 (46-116) U/L Total Protein 8.1 (6.4-8.2) g/dL Albumin 3.8 (3.4-5.0) g/dL Globulin 4.3 H (2.6-4.0) g/dL Albumin/Globulin Ratio 0.9 (0.9-1.6) Lipase 96 (73-393) U/L Urine Color Urine Appearance Urine pH (5.0-8.0) Ur Specific [place] (1.001-1.035) Urine Protein (NEGATIVE) mg/dL Urine Glucose (UA) (NEGATIVE) mg/dL Urine Ketones (NEGATIVE) mg/dL Urine Occult Blood (NEGATIVE) Urine Nitrite (NEGATIVE) Urine Bilirubin (NEGATIVE) Urine Urobilinogen (<2.0) EU/dL Ur Leukocyte Esterase (NEGATIVE) Urine RBC (0-2/HPF) Urine WBC (0-5/HPF) Ur Epithelial Cells (NONE-FEW) Urine Bacteria (NEGATIVE) Urine HCG, Qual (NEGATIVE) SARS-CoV-2 RNA (RANDELL) NEGATIVE (NEGATIVE) 08/28/21 08/28/21 Range/Units 05:49 05:49 WBC 5.72 (4.0-11.0) K/uL RBC 4.21 L (4.30-5.90) M/uL Hgb 12.1 (12.0-16.0) g/dL Hct 36.7 (36.0-46.0) % MCV 87.2 (80.0-98.0) fL MCH 28.7 (27.0-32.0) pg MCHC 33.0 (31.0-37.0) g/dL RDW Std Deviation 41.8 (28.0-62.0) fl RDW Coeff of Crys 13 (11.0-15.0) % Plt Count 234 (150-400) K/uL MPV 9.70 (7.40-12.00) fL Neut % (Auto) 53.3 (48.0-80.0) % Lymph % (Auto) 30.6 (16.0-40.0) % [place] % (Auto) 14.3 (0.0-15.0) % Eos % (Auto) 1.6 (0.0-7.0) % Baso % (Auto) 0.2 (0.0-1.5) % Neut # (Auto) 3.1 (1.4-5.7) K/uL Lymph # (Auto) 1.8 (0.6-2.4) K/uL [place] # (Auto) 0.8 (0.0-0.8) K/uL Eos # (Auto) 0.1 (0.0-0.7) K/uL Baso # (Auto) 0.0 (0.0-0.1) K/uL Nucleated RBC % 0.0 /100WBC Nucleated RBCs # 0 K/uL Sodium 139 (136-145) mmol/L Potassium 3.9 (3.5-5.1) mmol/L Chloride 107 (98-107) mmol/L Carbon Dioxide 22.8 (21.0-32.0) mmol/L BUN 15 (7.0-18.0) mg/dL Creatinine 0.9 (0.6-1.0) mg/dL Est Cr Clr Drug Dosing 73.12 mL/min Estimated GFR (MDRD) > 60.0 ml/min Glucose 96 (74-106) mg/dL Lactic Acid (0.4-2.0) mmol/L Calcium 8.0 L (8.5-10.1) mg/dL Total Bilirubin (0.2-1.0) mg/dL AST (15-37) IU/L ALT (14-63) IU/L Alkaline Phosphatase (46-116) U/L Total Protein (6.4-8.2) g/dL Albumin (3.4-5.0) g/dL Globulin (2.6-4.0) g/dL Albumin/Globulin Ratio (0.9-1.6) Lipase (73-393) U/L Urine Color Urine Appearance Urine pH (5.0-8.0) Ur Specific [place] (1.001-1.035) Urine Protein (NEGATIVE) mg/dL Urine Glucose (UA) (NEGATIVE) mg/dL Urine Ketones (NEGATIVE) mg/dL Urine Occult Blood (NEGATIVE) Urine Nitrite (NEGATIVE) Urine Bilirubin (NEGATIVE) Urine Urobilinogen (<2.0) EU/dL Ur Leukocyte Esterase (NEGATIVE) Urine RBC (0-2/HPF) Urine WBC (0-5/HPF) Ur Epithelial Cells (NONE-FEW) Urine Bacteria (NEGATIVE) Urine HCG, Qual (NEGATIVE) SARS-CoV-2 RNA (RANDELL) (NEGATIVE) Med Orders - Current: Current Medications Acetaminophen (Acetaminophen 325 Mg Tab) 650 mg PO Q4H PRN PRN Reason: Pain Last Admin: 08/28/21 07:53 Dose: 650 mg Documented by: Ertapenem 1 gm/ Sodium (Chloride) 50 mls @ 100 mls/hr IV Q24H [facility] Morphine Sulfate (Morphine 2 Mg/Ml Syringe) 2 mg IVPUSH Q2H PRN PRN Reason: Pain Last Admin: 08/28/21 08:02 Dose: 2 mg Documented by: Oxycodone HCl (Oxycodone 5 Mg Tab) 5 mg PO Q4H PRN PRN Reason: Pain Last Admin: 08/28/21 00:35 Dose: 5 mg Documented by: Discontinued Medications Sodium Chloride (Normal Saline) 1,000 mls @ 999 mls/hr IV .Bolus ONE Stop: 08/27/21 19:31 Last Admin: 08/27/21 19:00 Dose: 999 mls/hr Documented by: Meropenem 2 gm/ Sodium (Chloride) 100 mls @ 100 mls/hr IV ONETIME ONE Stop: 08/27/21 19:47 Last Admin: 08/27/21 21:47 Dose: 100 mls/hr Documented by: Meropenem 1 gm/ Sodium (Chloride) 100 mls @ 200 mls/hr IV Q8H [facility] Last Admin: 08/28/21 06:06 Dose: Not Given Documented by: Meropenem/Sodium Chloride (Meropenem In Ns 1 Gm/50 Ml) 50 mls @ 100 mls/hr IV Q8H [facility] Last Admin: 08/28/21 04:50 Dose: 100 mls/hr Documented by: Ketorolac Tromethamine (Ketorolac 30 Mg/Ml Sdv) 15 mg IVPUSH ONETIME ONE Stop: 08/27/21 18:32 Last Admin: 08/27/21 18:59 Dose: 15 mg Documented by: Ondansetron HCl (Ondansetron 4 Mg/2 Ml Sdv) 4 mg IVPUSH ONETIME ONE Stop: 08/27/21 18:32 Last Admin: 08/27/21 19:00 Dose: 4 mg Documented by:
[2021-08-28] MEDS ORDERED: Ertapenem 1 GM in Sodium Chloride 0.9% 50 ML IV SCH (13:00)
[2021-08-28 13:54] VITALS: BP 100/56; PULSE 74
== END 2021-08-28 15:50 | disposition home or self-care (01) ==
LOC: MW.ED 17:31 → MW.MS 21:32
PROVIDERS: ADMIT Internal Medicine; ATTEND Internal Medicine
DX: N20.0 Calculus of kidney (principal); I10 Essential (primary) hypertension; G43.909 Migraine, unspecified, not intractable, without status migrainosus; Z98.890 Other specified postprocedural states; Z20.822 Contact with and (suspected) exposure to COVID-19
CPT/HCPCS: 36415; 74176; 80048; 80053; 81001; 81025; 83605; 83690; 85025; 87086; 87088; 87186; 87635; 96365; 96367; 96375; 96376; 99285; A9270; G0378; J1335; J1885; J2185; J2270; J2405; J7030; U0002

== ENCOUNTER 2021-11-01 23:16 | Emergency (ER) | payer BC ==
[2021-11-01] MEDS ORDERED: HYDROmorphone 2 MG/ML Syringe IM ONE (23:31)
[2021-11-02] MEDS ORDERED: Sodium Chloride 0.9% 1,000 ML IV ONE ×2 (00:49→02:30)
[2021-11-02] MEDS ORDERED: HYDROmorphone 2 MG/ML Syringe IVPUSH ONE (01:35)
[2021-11-02 01:53] LABS: BLOOD UREA NITROGEN,BUN 10 mg/dL (7.0-18.0); CARBON DIOXIDE,CO2 25.2 mmol/L (21.0-32.0); CHLORIDE,CL 106 mmol/L (98-107); ESTIMATED GFR > 60.0 ml/min; GLUCOSE RANDOM 150 mg/dL (74-106); LIPASE 164 U/L (73-393); POTASSIUM,K 3.9 mmol/L (3.5-5.1); SODIUM,NA 141 mmol/L (136-145)
[2021-11-02] MEDS ORDERED: Iopamidol 755 MG/ML 500 ML Multipack Bottle IVPUSH STA (02:27)
[2021-11-02] MEDS ORDERED: diphenhydrAMINE 50 MG/ML SDV IVPUSH ONE (02:31)
[2021-11-02] MEDS ORDERED: Ertapenem 1 GM in Sodium Chloride 0.9% 50 ML IV ONE ×2 (04:05→04:45)
[2021-11-02] MEDS ORDERED: oxyCODONE 5 MG Tab PO STA (04:55)
[2021-11-02 05:17] VITALS: BP 133/78; PULSE 71
== END 2021-11-02 05:29 | disposition home or self-care (01) ==
LOC: MW.ED 23:16
DX: N12 Tubulo-interstitial nephritis, not specified as acute or chronic (principal); I10 Essential (primary) hypertension; Z72.0 Tobacco use
CPT/HCPCS: 36415; 74018; 74177; 80053; 81001; 83690; 85025; 96365; 96372; 96375; 99284; A9270; J1170; J1335; J7030; Q9967; J3490

== ENCOUNTER 2021-12-14 14:48 | Emergency (ER) | payer BC ==
[2021-12-14] MEDS ORDERED: Sodium Chloride 0.9% 2.5 ML Syringe FLUSH PRN (14:58)
[2021-12-14] MEDS ORDERED: Sodium Chloride 0.9% 10 ML Syringe FLUSH PRN (14:58)
[2021-12-14 15:41] LABS: BLOOD UREA NITROGEN,BUN 10 mg/dL (7.0-18.0); CARBON DIOXIDE,CO2 21.9 mmol/L (21.0-32.0); CHLORIDE,CL 108 mmol/L (98-107); GLUCOSE RANDOM 93 mg/dL (74-106); POTASSIUM,K 3.6 mmol/L (3.5-5.1); SODIUM,NA 139 mmol/L (136-145)
[2021-12-14] MEDS ORDERED: Alum Hydro/Mag Hydro/Simeth XS 15 ML, Lidocaine 2% 5 ML PO ONE ×2 (16:46)
[2021-12-14] MEDS ORDERED: Ketorolac 30 MG/ML SDV IVPUSH ONE (17:07)
[2021-12-14] MEDS ORDERED: Cyclobenzaprine 10 MG Tab PO ONE (17:07)
[2021-12-14 17:42] VITALS: BP 127/90; PULSE 66
== END 2021-12-14 17:51 | disposition home or self-care (01) ==
LOC: MW.ED 14:48
DX: R07.89 Other chest pain (principal); I10 Essential (primary) hypertension; Z86.16 Personal history of COVID-19; Z72.0 Tobacco use
CPT/HCPCS: 36415; 71045; 80053; 84484; 85025; 85379; 93005; 96374; 99284; A9270; J1885; J3490; 93010; 99283

== ENCOUNTER 2022-12-06 13:41 | Emergency (ER) | payer BC ==
[2022-12-06] MEDS ORDERED: Sodium Chloride 0.9% 1,000 ML IV STA (14:25)
[2022-12-06] MEDS ORDERED: Ondansetron 4 MG/2 ML SDV IVPUSH STA (14:25)
[2022-12-06] MEDS ORDERED: Sodium Chloride 0.9% 10 ML Syringe FLUSH PRN (14:25)
[2022-12-06] MEDS ORDERED: Sodium Chloride 0.9% 2.5 ML Syringe FLUSH PRN (14:25)
[2022-12-06] MEDS ORDERED: fentaNYL 50 MCG/ML SDV IVPUSH STA (14:26)
[2022-12-06 15:35] LABS: CARBON DIOXIDE,CO2 24.8 mmol/L (21.0-32.0); POTASSIUM,K 3.7 mmol/L (3.5-5.1)
[2022-12-06] MEDS ORDERED: Magnesium Sulfate/Water 2 GM in Premix Bag 1 BAG IV STA (15:37)
[2022-12-06] MEDS ORDERED: Iopamidol 755 MG/ML 500 ML Multipack Bottle IVPUSH ONE (16:18)
[2022-12-06] MEDS ORDERED: Ketorolac 30 MG/ML SDV IVPUSH STA (17:06)
[2022-12-06 19:26] VITALS: BP 128/85; PULSE 69
== END 2022-12-06 18:15 | disposition home or self-care (01) ==
LOC: MW.ED 13:41
DX: R10.31 Right lower quadrant pain (principal); Z72.0 Tobacco use
CPT/HCPCS: 36415; 74177; 80053; 81003; 83690; 83735; 85025; 96361; 96365; 96375; 99284; J1885; J2405; J3010; J3475; J3490; J7030; Q9967; 99283

== ENCOUNTER 2023-02-25 02:49 | Emergency (ER) | payer BC ==
[2023-02-25] MEDS ORDERED: Dexamethasone 10 MG/ML SDV IVPUSH ONE (02:57)
[2023-02-25] MEDS ORDERED: Ampicillin/Sulbactam Na 3 GM in Sodium Chloride 0.9% 100 ML IV ONE (02:58)
[2023-02-25 03:19] LABS: BASOPHILS PERCENT AUTO 0.1 % (0.0-1.5); EOSINOPHILS ABSOLUTE AUTO 0.1 K/uL (0.0-0.7); HEMATOCRIT 37.3 % (36.0-46.0); HEMOGLOBIN 12.8 g/dL (12.0-16.0); LYMPHOCYTES PERCENT AUTO 21.6 % (16.0-40.0); MEAN CORPUSCULAR HEMOGLOBIN 31.3 pg (27.0-32.0); MEAN CORPUSCULAR HGB CONC 34.3 g/dL (31.0-37.0); MEAN CORPUSCULAR VOLUME 91.2 fL (80.0-98.0); MONOCYTES ABSOLUTE AUTO 0.9 K/uL (0.0-0.8); MONOCYTES PERCENT AUTO 9.9 % (0.0-15.0); NEUTROPHILS ABSOLUTE AUTO 6.2 K/uL (1.4-5.7); NEUTROPHILS PERCENT AUTO 67.4 % (48.0-80.0); PLATELET COUNT,PLT 206 K/uL (150-400); RED BLOOD CELL COUNT 4.09 M/uL (4.30-5.90); WHITE BLOOD CELL COUNT,WBC 9.23 K/uL (4.0-11.0)
[2023-02-25] MEDS ORDERED: Iopamidol 755 MG/ML 500 ML Multipack Bottle IVPUSH ONE (03:27)
[2023-02-25 04:06] LABS: A/G RATIO 1.1 (0.9-1.6); ALBUMIN 3.5 g/dL (3.4-5.0); BILIRUBIN TOTAL 0.5 mg/dL (0.2-1.0); CALCIUM 7.9 mg/dL (8.5-10.1); CARBON DIOXIDE,CO2 24.5 mmol/L (21.0-32.0); CREATININE 0.7 mg/dL (0.6-1.0); EST CRCL DRUG DOSING (CG) 92.01 mL/min; POTASSIUM,K 3.4 mmol/L (3.5-5.1); PROTEIN TOTAL,TP 6.6 g/dL (6.4-8.2)
[2023-02-25 05:41] VITALS: BP 132/87; PULSE 87
== END 2023-02-25 05:41 | disposition home or self-care (01) ==
LOC: MW.ED 02:49
DX: J39.2 Other diseases of pharynx (principal); I10 Essential (primary) hypertension; Z86.16 Personal history of COVID-19; Z79.899 Other long term (current) drug therapy
CPT/HCPCS: 36415; 70491; 80053; 85025; 96365; 96375; 99283; J0295; J1100; J3490; Q9967; 99284

== ENCOUNTER 2023-09-07 15:36 | Observation (INO) | payer BC ==
[2023-09-07 15:52] LABS: BASOPHILS ABSOLUTE AUTO 0.02 K/uL (0.00-0.20); BASOPHILS PERCENT AUTO 0.3 % (0.0-1.0); EOSINOPHILS ABSOLUTE AUTO 0.14 K/uL (0.00-0.45); EOSINOPHILS PERCENT AUTO 2.3 % (0.0-6.0); HEMATOCRIT 42.5 % (37.0-47.0); HEMOGLOBIN 14.7 g/dL (12.0-16.0); IMMATURE GRAN ABSOLUTE AUTO 0.01 K/uL (0.00-0.05); IMMATURE GRAN PERCENT AUTO 0.2 % (0.0-0.4); LYMPHOCYTES ABSOLUTE AUTO 2.39 K/uL (1.00-4.80); LYMPHOCYTES PERCENT AUTO 39.8 % (24.0-44.0); MEAN CORPUSCULAR HEMOGLOBIN 30.7 pg (28.0-32.0); MEAN CORPUSCULAR HGB CONC 34.6 g/dL (32.0-36.0); MEAN CORPUSCULAR VOLUME 88.7 fL (83.0-99.0); MEAN PLATELET VOLUME 9.2 fL (9.4-12.3); MONOCYTES ABSOLUTE AUTO 0.45 K/uL (0.00-0.80); MONOCYTES PERCENT AUTO 7.5 % (0.0-8.0); NEUTROPHILS ABSOLUTE AUTO 2.99 K/uL (1.80-7.70); NEUTROPHILS PERCENT AUTO 49.9 % (41.0-71.0); PLATELET COUNT,PLT 286 K/uL (150-400); RED BLOOD CELL COUNT 4.79 M/uL (4.10-5.30)
[2023-09-07 16:05] LABS: INR 0.96 (0.86-1.11); PTT,PARTIAL THROMBOPLSTIN TIME 27.1 SEC (23.9-30.7)
[2023-09-07] MEDS ORDERED: Iopamidol 755 MG/ML 500 ML Multipack Bottle IVPUSH STA (16:05)
[2023-09-07 16:39] LABS: AMPHETAMINES SCREEN, URINE NEGATIVE (CUTOFF=500); BARBITURATE SCREEN,URINE NEGATIVE (CUTOFF=200); BENZODIAZEPINES SCREEN,URINE NEGATIVE (CUTOFF=150); BUPRENORPHINE SCREEN,URINE NEGATIVE (CUTOFF=10); METHADONE SCREEN, URINE NEGATIVE (CUTOFF=200); METHAMPHETAMINES SCREEN, URINE NEGATIVE (CUTOFF=500); OXYCODONE SCREEN,URINE NEGATIVE (CUT0FF=100); PCP SCREEN,URINE NEGATIVE (CUTOFF=25); THC SCREEN,URINE 20 NG/ML PRESUMPTIVE POSITIVE (CUTOFF=50)
[2023-09-07 16:40] LABS: A/G RATIO 1.1 (0.9-1.6); ALANINE AMINOTRANSFERASE,ALT 34 IU/L (14-63); ALKALINE PHOSPHATASE 85 U/L (46-116); ASPARTATE AMNIOTRANSFERASE,AST 16 IU/L (15-37); BILIRUBIN TOTAL 0.3 mg/dL (0.2-1.0); BLOOD UREA NITROGEN,BUN 14 mg/dL (7.0-18.0); CARBON DIOXIDE,CO2 29.9 mmol/L (21.0-32.0); CHLORIDE,CL 104 mmol/L (98-107); CREATININE 0.8 mg/dL (0.6-1.0); EST CRCL DRUG DOSING (CG) 80.51 mL/min; GLUCOSE RANDOM 102 mg/dL (74-106); POTASSIUM,K 3.7 mmol/L (3.5-5.1); PROTEIN TOTAL,TP 7.5 g/dL (6.4-8.2); SODIUM,NA 143 mmol/L (136-145); TSH ULTRASENSITIVE 2.66 uIU/mL (0.36-3.74)
[2023-09-07 16:44] LABS: ESTIMATED GFR 91 mL/min (>60); ETHANOL BLOOD MEDICAL < 3.0 mg/dL
[2023-09-07] MEDS ORDERED: Sodium Chloride 0.9% 1,000 ML IV ONE (16:44)
[2023-09-07] MEDS ORDERED: Meclizine 25 MG Tab PO ONE (16:44)
[2023-09-07] MEDS ORDERED: Metoclopramide 10 MG/2 ML SDV IVPUSH ONE (16:45)
[2023-09-07] MEDS ORDERED: Ketorolac 30 MG/ML SDV IVPUSH ONE (16:45)
[2023-09-07 16:49] LABS: CORONAVIRUS COVID-19 NAA NEGATIVE (NEGATIVE); INFLUENZA A NAA NEGATIVE (NEGATIVE); INFLUENZA B NAA NEGATIVE (NEGATIVE)
[2023-09-07 17:43] LABS: APPEARANCE,URINE CLEAR; BILIRUBIN,URINE NEGATIVE (NEGATIVE); COLOR,URINE YELLOW; GLUCOSE,URINE NEGATIVE (NEGATIVE); KETONES,URINE NEGATIVE (NEGATIVE); LEUKOCYTE ESTERASE,URINE NEGATIVE (NEGATIVE); NITRITE,URINE NEGATIVE (NEGATIVE); OCCULT BLOOD,URINE NEGATIVE (NEGATIVE); PROTEIN,URINE NEGATIVE (NEGATIVE); UROBILINOGEN,URINE 0.2 EU/dL (<2.0)
[2023-09-07] MEDS ORDERED: Ondansetron 4 MG/2 ML SDV IVPUSH PRN (18:09)
[2023-09-07] MEDS ORDERED: Sodium Chloride 0.9% 20 ML SDV IV PRN (18:09)
[2023-09-07] MEDS ORDERED: Polyethylene Glycol 3350 Powder 17 GM Packet PO PRN (18:09)
[2023-09-07] MEDS ORDERED: Albuterol/Ipratropium 3.0-0.5 MG/3 ML Neb Soln NEB PRN (18:09)
[2023-09-07] MEDS ORDERED: Acetaminophen 325 MG Tab PO PRN (18:09)
[2023-09-07] MEDS ORDERED: Pantoprazole 40 MG in Sodium Chloride 0.9% 10 ML IVPUSH SCH (18:15)
[2023-09-07] MEDS ORDERED: Meclizine 25 MG Tab PO PRN (18:46)
[2023-09-07 18:57] LABS: HEMOGLOBIN A1C 5.2 %
[2023-09-08 05:46] LABS: BASOPHILS ABSOLUTE AUTO 0.02 K/uL (0.00-0.20); BASOPHILS PERCENT AUTO 0.4 % (0.0-1.0); EOSINOPHILS ABSOLUTE AUTO 0.16 K/uL (0.00-0.45); EOSINOPHILS PERCENT AUTO 3.5 % (0.0-6.0); HEMATOCRIT 37.9 % (37.0-47.0); HEMOGLOBIN 13.1 g/dL (12.0-16.0); IMMATURE GRAN ABSOLUTE AUTO 0.01 K/uL (0.00-0.05); IMMATURE GRAN PERCENT AUTO 0.2 % (0.0-0.4); LYMPHOCYTES ABSOLUTE AUTO 2.24 K/uL (1.00-4.80); MEAN CORPUSCULAR HEMOGLOBIN 30.9 pg (28.0-32.0); MEAN CORPUSCULAR HGB CONC 34.6 g/dL (32.0-36.0); MEAN CORPUSCULAR VOLUME 89.4 fL (83.0-99.0); MEAN PLATELET VOLUME 9.6 fL (9.4-12.3); MONOCYTES ABSOLUTE AUTO 0.42 K/uL (0.00-0.80); MONOCYTES PERCENT AUTO 9.2 % (0.0-8.0); NEUTROPHILS ABSOLUTE AUTO 1.72 K/uL (1.80-7.70); NEUTROPHILS PERCENT AUTO 37.7 % (41.0-71.0); PLATELET COUNT,PLT 236 K/uL (150-400); RED BLOOD CELL COUNT 4.24 M/uL (4.10-5.30); WHITE BLOOD CELL COUNT,WBC 4.57 K/uL (3.9-11.3)
[2023-09-08 06:03] LABS: CALCIUM 7.8 mg/dL (8.5-10.1); CARBON DIOXIDE,CO2 23.7 mmol/L (21.0-32.0); CREATININE 0.7 mg/dL (0.6-1.0); EST CRCL DRUG DOSING (CG) 92.01 mL/min; POTASSIUM,K 4.1 mmol/L (3.5-5.1)
[2023-09-08] MEDS ORDERED: Gadobenate Dimeglumine 529 MG/ML 20 ML SDV IVPUSH STA (08:27)
[2023-09-08 12:30] VITALS: BP 112/80; PULSE 74
== END 2023-09-08 12:55 | disposition home or self-care (01) ==
LOC: MW.ED 15:36 → MW.MS 17:39
PROVIDERS: ADMIT Family Medicine; ATTEND Family Medicine
DX: R42 Dizziness and giddiness (principal); R47.81 Slurred speech; R51.9 Headache, unspecified; I10 Essential (primary) hypertension; F41.9 Anxiety disorder, unspecified; Z98.890 Other specified postprocedural states; Z79.899 Other long term (current) drug therapy
CPT/HCPCS: 0240U; 36415; 70450; 70496; 70498; 70544; 70549; 70553; 80048; 80053; 80061; 80307; 81003; 82040; 82607; 82947; 83036; 83735; 84443; 84484; 84703; 85025; 85610; 85730; 86592; 93005; 93306; 96361; 96374; 96375; 97110; 97161; 99285; A9270; A9577; J1885; J2765; J7030; Q9967; 80305-QW; 93010; 99284; G0378

== ENCOUNTER 2024-09-05 10:01 | Emergency (ER) | payer BC ==
[2024-09-05] MEDS ORDERED: Sodium Chloride 0.9% 2.5 ML Syringe FLUSH PRN (10:19)
[2024-09-05] MEDS ORDERED: Sodium Chloride 0.9% 10 ML Syringe FLUSH PRN (10:19)
[2024-09-05] MEDS: Benzonatate 100 MG Cap PO STA (10:32)
[2024-09-05] MEDS: Sodium Chloride 0.9% 1,000 ML IV STA (10:32)
[2024-09-05 10:42] LABS: BASOPHILS ABSOLUTE AUTO 0.03 K/uL (0.00-0.20); BASOPHILS PERCENT AUTO 0.6 % (0.0-1.0); EOSINOPHILS PERCENT AUTO 2.1 % (0.0-6.0); HEMOGLOBIN 14.5 g/dL (12.0-16.0); LYMPHOCYTES ABSOLUTE AUTO 1.13 K/uL (1.00-4.80); LYMPHOCYTES PERCENT AUTO 24.1 % (24.0-44.0); MEAN CORPUSCULAR HEMOGLOBIN 30.5 pg (28.0-32.0); MEAN CORPUSCULAR HGB CONC 35.4 g/dL (32.0-36.0); MEAN CORPUSCULAR VOLUME 86.1 fL (83.0-99.0); MONOCYTES ABSOLUTE AUTO 0.55 K/uL (0.00-0.80); MONOCYTES PERCENT AUTO 11.8 % (0.0-8.0); NEUTROPHILS ABSOLUTE AUTO 2.87 K/uL (1.80-7.70); NEUTROPHILS PERCENT AUTO 61.4 % (41.0-71.0); PLATELET COUNT,PLT 249 K/uL (150-400); RED BLOOD CELL COUNT 4.76 M/uL (4.10-5.30); WHITE BLOOD CELL COUNT,WBC 4.68 K/uL (3.9-11.3)
[2024-09-05 11:04] LABS: A/G RATIO 1.1 (0.9-1.6); ALANINE AMINOTRANSFERASE,ALT 20 IU/L (14-63); ALBUMIN 3.9 g/dL (3.4-5.0); ALKALINE PHOSPHATASE 70 U/L (46-116); ASPARTATE AMNIOTRANSFERASE,AST 19 IU/L (15-37); BILIRUBIN TOTAL 0.5 mg/dL (0.2-1.0); BLOOD UREA NITROGEN,BUN 8 mg/dL (7.0-18.0); CALCIUM 8.9 mg/dL (8.5-10.1); CARBON DIOXIDE,CO2 25.8 mmol/L (21.0-32.0); CHLORIDE,CL 106 mmol/L (98-107); CREATININE 0.7 mg/dL (0.6-1.0); EST CRCL DRUG DOSING (CG) 91.01 mL/min; GLUCOSE RANDOM 101 mg/dL (74-106); LIPASE 38 U/L (16-77); MAGNESIUM 1.9 mg/dL (1.8-2.4); POTASSIUM,K 3.8 mmol/L (3.5-5.1); PROTEIN TOTAL,TP 7.4 g/dL (6.4-8.2); SODIUM,NA 138 mmol/L (136-145)
[2024-09-05 11:07] LABS: ESTIMATED GFR 106 mL/min (>60)
[2024-09-05 11:36] VITALS: BP 126/74; PULSE 87
== END 2024-09-05 11:25 | disposition home or self-care (01) ==
LOC: MW.ED 10:01
DX: B33.8 Other specified viral diseases (principal); Z75.8 Other problems related to medical facilities and other health care; Z79.899 Other long term (current) drug therapy; Z90.710 Acquired absence of both cervix and uterus
CPT/HCPCS: 36415; 71046; 80053; 83690; 83735; 84484; 85025; 93005; 96361; 96374; 99285; A9270; J1100; J7030; 93010; 99283

== ENCOUNTER 2025-05-11 15:37 | Emergency (ER) | payer BC ==
[2025-05-11] MEDS: Acetaminophen/HYDROcodone 325-5 MG Tab PO ONE (17:49)
[2025-05-11 18:05] VITALS: BP 132/70; PULSE 82
== END 2025-05-11 18:06 | disposition home or self-care (01) ==
LOC: MW.ED 15:37
DX: S93.601A Unspecified sprain of right foot, initial encounter (principal); Z90.710 Acquired absence of both cervix and uterus; Z79.899 Other long term (current) drug therapy; W10.9XXA Fall (on) (from) unspecified stairs and steps, initial encounter; X50.1XXA Overexertion from prolonged static or awkward postures, initial encounter
CPT/HCPCS: 73630; 99283; A9270